=== PATIENT | female | born 1940 | race Caucasian/White ===

== ENCOUNTER 2024-11-13 01:25 | Inpatient (IN) | payer OTHER, SELFPAY ==
[2024-11-12 19:42] VITALS: BP 172/99
--- NOTE | 2024-11-12 23:26 | ED.GENMED ---
History of Present Illness
<Micah Garcia PA-C - Last Filed: 11/13/24 00:32>
General
Chief Complaint: Fall
Time Seen by Provider: 11/12/24 23:09
History of Present Illness
History of Present Illness:
84-year-old female presents to the emergency department for evaluation of left hip and groin pain as well as left chest wall pain after a mechanical fall. She slipped on a rug in her home and was on the ground for 2 to 3 hours before reaching her
phone. She is unable to walk. Does not take any anticoagulants. Denies head strike.
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
post bone grafting
Review of Systems
<Micah Garcia PA-C - Last Filed: 11/13/24 00:32>
Review of Systems
Allergies reviewed?: Yes
All Other Systems: ROS reviewed and negative except as documented in HPI and ROS
Phy Exam
<Micah Garcia PA-C - Last Filed: 11/13/24 00:32>
Physical Exam
Physical Exam:
GEN: Well appearing, NAD, WDWN
HEENT: Oral mucosa moist, no scleral icterus
Cardiac: Regular rate
Lung: No respiratory distress, no tachypnea
MSK: Shortening and external rotation of the left lower extremity, no obvious swelling or deformity to the left knee. No midline cervical, thoracic, or lumbar spinal tenderness.
Skin: Good color, no pallor or jaundice, no rashes
Neuro: AO x3, moves all extremities freely
Psych: Calm, cooperative
Course
<Micah Garcia PA-C - Last Filed: 11/13/24 00:32>
Orders/Labs/Results
Orders:
Orders
11/12/24 19:51
CR Hip - LT w/wo Pel 2-3 Vw* Urgent
Comment:
Reason For Exam: fall
Include a pelvis x-ray?: Yes
11/12/24 20:33
Femur, Left 2 View [CR Femur - Left Min 2 Vw] Urgent
Comment:
Reason For Exam: FALL
11/12/24 23:23
Acetaminophen [Tylenol] 650 mg PO NOW STA
CR Chest Portable - 1 View Urgent
Comment:
Reason For Exam: chest/back injury/fall
Reason Study Needs to be Portable: Other
11/12/24 23:55
Complete Blood Count/With Diff Urgent
11/13/24 00:30
Comprehensive Metabolic Panel Urgent
Comment: REDRAW
Creatine Phosphokinase Urgent
Abnormal Lab Results
11/12/24
23:55
WBC 22.8 H 10^3/uL
(4.8-10.8)
Hct 36.8 L %
(37.0-47.0)
RDW 15.7 H %
(11.5-14.5)
Plt Count 424 H 10^3/uL
(130-400)
MPV 11.2 H fL
(7.4-10.4)
11/12/24 23:55
Vital Signs
Initial and Last Documented VS:
Initial Vital Signs
Temp Pulse Resp BP Pulse Ox
98.2 F 73 16 172/99 98
11/12/24 19:42 11/12/24 19:42 11/12/24 19:42 11/12/24 19:42 11/12/24 19:42
Last Documented Vital Signs
Temp Pulse Resp BP Pulse Ox
98.2 F 73 16 172/99 98
11/12/24 19:42 11/12/24 19:42 11/12/24 19:42 11/12/24 19:42 11/12/24 23:27
<Michael Michael MD - Last Filed: 11/13/24 00:35>
Orders/Labs/Results
Orders:
Orders
11/12/24 19:51
CR Hip - LT w/wo Pel 2-3 Vw* Urgent
Comment:
Reason For Exam: fall
Include a pelvis x-ray?: Yes
11/12/24 20:33
Femur, Left 2 View [CR Femur - Left Min 2 Vw] Urgent
Comment:
Reason For Exam: FALL
11/12/24 23:23
Acetaminophen [Tylenol] 650 mg PO NOW STA
CR Chest Portable - 1 View Urgent
Comment:
Reason For Exam: chest/back injury/fall
Reason Study Needs to be Portable: Other
11/12/24 23:55
Complete Blood Count/With Diff Urgent
11/13/24 00:30
Comprehensive Metabolic Panel Urgent
Comment: REDRAW
Creatine Phosphokinase Urgent
Abnormal Lab Results
11/12/24
23:55
WBC 22.8 H 10^3/uL
(4.8-10.8)
Hct 36.8 L %
(37.0-47.0)
RDW 15.7 H %
(11.5-14.5)
Plt Count 424 H 10^3/uL
(130-400)
MPV 11.2 H fL
(7.4-10.4)
11/12/24 23:55
Vital Signs
Initial and Last Documented VS:
Initial Vital Signs
Temp Pulse Resp BP Pulse Ox
98.2 F 73 16 172/99 98
11/12/24 19:42 11/12/24 19:42 11/12/24 19:42 11/12/24 19:42 11/12/24 19:42
Last Documented Vital Signs
Temp Pulse Resp BP Pulse Ox
98.2 F 73 16 172/99 98
11/12/24 19:42 11/12/24 19:42 11/12/24 19:42 11/12/24 19:42 11/12/24 23:27
<Micah Garcia PA-C - Last Filed: 11/13/24 00:32>
MDM/Problems Addressed
MDM/Problems Addressed:
Patient unfortunately sustained a left intertrochanteric fracture of the hip will require admission to the medical service for operative clearance and orthopedic consultation for operative intervention. Of note the abnormal findings on distal femur
x-rays are most likely patient support representative of prior fracture with subsequent bone grafting as opposed to malignant disease
<Micah Garcia PA-C - Last Filed: 11/13/24 00:32>
*Pulse Oximetry
SaO2: 98
Oxygen Mode of Delivery: Room air
Patient hypoxic: no
*Critical Care Note
Total Time (30-74mins, 75-104mins- exclusive of procedures): Not Applicable
ED Attending Note
<Micah Garcia PA-C - Last Filed: 11/13/24 00:32>
-
Portions of this chart may have been created with voice recognition software.� Occasional wrong word or��sound alike� substitutions may have occurred due to the inherent limitations of voice recognition software.
<Michael Michael MD - Last Filed: 11/13/24 00:35>
ED Attending Note
Patient seen and examined by attending physician: Yes
I performed the substantive portion of visit, reviewed & personally made and approve the management plan that is documented in note by myself or ELLEN.: Yes
ED Attending Note:
84-year-old female fell in her kitchen. No syncope. Complaining of severe left hip pain. Also some left lateral rib pain. No other acute complaints
On exam patient is nontoxic. Normocephalic atraumatic. Neck nontender. Some mild left lateral chest wall tenderness. Breath sounds are equal. Abdomen nontender. Pelvis is stable. Shortening and rotation of the left lower extremity with
significant left trochanteric tenderness. Good distal pulses and color.
X-ray shows right intertrochanteric hip fracture. Chest x-ray unremarkable for acute fracture or pneumothorax. Admission for definitive orthopedic management. Leukocytosis is likely reactive
Discharge Plan
Departure
Patient Disposition: Admit
Date of Disposition: 11/13/24
Time of Disposition: 00:31
Admit to: Med/Surg
Presentation/result/management discussed w/ accepting MD/DO: Hospitalist
Discharge Problem:
Closed intertrochanteric fracture of left femur
Interventions
Interventions:
*Risk Screen - Suicide Last Done: 11/12/24 19:42
*General Assessment Last Done: 11/12/24 23:50
*Neglect/Abuse Screening Last Done: 11/12/24 23:50
*ED COVID-19 Vaccine History Last Done: 11/12/24 23:50
ED-Musculoskeletal Assessment Last Done: 11/12/24 23:53
ED- Neurological Assessment Last Done: 11/12/24 23:53
ED-Skin Assessment Last Done: 11/12/24 23:53
Discharge Date and Time
Print Language: [place]
[2024-11-12] MEDS: TYLENOL 650 MG PO (23:33)
[2024-11-12 23:44] VITALS: BMI 21.7
[2024-11-12 23:48] VITALS: BP 165/73
[2024-11-13] VITALS (12 sets, daily range): BP systolic 125–196; BP diastolic 56–101; BMI 21.0
[2024-11-13 00:08] LABS: Hematocrit 36.8 % (37.0-47.0); Hemoglobin 12.3 g/dL (12.0-16.0); Mean Corp Hgb Conc. 33.4 g/dL (33.0-37.0); Mean Corpuscular Volume 86.4 fL (81.0-99.0); Platelet Count 424 10^3/uL (130-400); Red Cell Dist. Width 15.7 % (11.5-14.5)
--- NOTE | 2024-11-13 00:42 | HPS.HSE ---
Family Physician
-
Family Physician:
Chief Complaint
-
Fall
History of Present Illness
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
bone grafting, pituitary dwarfism presenting to the emergency ferment after mechanical fall.
Patient had a trip and fall at home. There was no loss of consciousness. She slipped on a rug in her home and fell to the ground. She was on the ground for about 2 to 3 hours before reaching her phone. She is now unable to walk. She denies any
head strike. She is not taking any anticoagulation.
In the emergency department she was afebrile, blood pressure was 172/99 with a pulse rate of 73 and she was satting 98% on room air.
She had a white count of 22.8 otherwise CBC was unremarkable. Electrolytes BUN and creatinine are still pending.
Hip x-ray shows left internal trochanteric femur fracture. Chest x-ray is clear.
Medical History
Past Medical History
Past Medical History: Reports Cancer (intraductal papillary mucinous neoplasm), Hypothyroidism and NIDDM
Past Surgical History: Reports Orthopedic (Femur fracture status post bone grafting) and Other (Distal pancreatectomy and splenectomy)
Social History
Tobacco: Non-smoker
Alcohol: None
Drug: None
Family History
Family History: Not pertinent
Allergies / Home Medications
Allergies reflects when Allergies were last updated in [facility].
Home Medications with original date entered in [facility]
Allergy/Medication List:
Allergies
Allergy/AdvReac Type Severity Reaction Status Date / Time
Penicillins Allergy Anaphylaxis Verified 11/12/24 19:42
vancomycin Allergy Anaphylaxis Verified 11/12/24 19:42
Metformin 1000 mg tablet, 1000 mg p.o. twice daily
Metoprolol 25 mg tablet, 25 mg p.o. daily
Aspirin 81 mg tablets, he tomograms p.o. at bedtime
If medication reconciliation has not been performed, why?: Other (Incomplete medication list as patient is unable to recall all her medications. She remains on levothyroxine, statin as well.)
Review of Systems
-
Constitutional: Reports No Symptoms
EENT: Reports No Symptoms
Respiratory: Reports No Symptoms
Cardiac: Reports No Symptoms
Abdomen/GI: Reports No Symptoms
: Reports No Symptoms
Musculoskeletal: Reports Joint Pain
Skin: Reports No Symptoms
Neurological: Reports No Symptoms
Endocrine: Reports No Symptoms
Hematologic/Lymphatic: Reports No Symptoms
Psych: Reports No Symptoms
Physical Exam
Vital Signs
Vital Signs
Temp Pulse Resp BP Pulse Ox
98.2 F 73 16 172/99 98
11/12/24 19:42 11/12/24 19:42 11/12/24 19:42 11/12/24 19:42 11/12/24 23:27
Physical Exam
General: Well Developed, Well Nourished and No Apparent Distress
HEENT: NormoCephalic, Moist mucous membranes and Atraumatic
Respiratory: Clear
Cardiac: S1/S2 and Regular Rhythm; No Murmur or Rub
GI: Soft, Non Tender, Non Distended and Normal Bowel Sounds; No Organomegaly
Rectal: Deferred by Provider
Musculoskeletal: No Clubbing, No Cyanosis and No Edema
Skin: No Rash
Neuro: AO x 3 and Nonfocal/grossly intact
Psych: Calm
Laboratory Results
-
11/12/24 23:55
Laboratory Results
Total Bilirubin Cancelled 11/12/24 23:55
AST Cancelled 11/12/24 23:55
ALT Cancelled 11/12/24 23:55
Alkaline Phosphatase Cancelled 11/12/24 23:55
Data Reviewed
-
Diagnostic Radiology: Image Personally Visualized and interpreted and Report Reviewed by me
Lab Data: Labs Reviewed by me
Old Records: Reviewed
Impression/Plan
-
IMPRESSION:
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
fall and a left intertrochanteric hip fracture.
PLAN:
Intertrochanteric femoral fracture -no thinners, surgical candidate
-Admit to MedSurg
-N.p.o. for now
-Pain control, antiemetics, gentle hydration
-Monitor ins and outs, bladder scan and treat for urinary retention
-DVT prophylaxis with SCDs for now, can start medical prophylaxis after surgical procedure
-Holding antihypertensives
-PT consult
-Ortho aware and plan 4 OR in a.m.
DMII
- sliding scale insulin for now, patient on metformin 1000mg bid
HTN
- on metoprolol, cannot recall dose, check with pharmacy in am
Hypothyroid
- on levothyroxine, cannot recall dose, check with pharmacy in am
DVT PPX - SCDs for now
CODE STATUS� full code
[2024-11-13 01:33] LABS: Absolute Neutrophils -Man Diff 20.7 10^3/uL (1.4-6.5)
[2024-11-13 01:34] LABS: Anisocytosis 2+; Burr Cells 2+; Normal RBC Morphology No; Platelets Checked Yes; Total Cells Counted 100
[2024-11-13 02:25] LABS: Glucose - Point of Care 186 mg/dl (70-99)
[2024-11-13 02:32] LABS: ALT (SGPT) 50 U/L (0-35); AST (SGOT) 74 U/L (14-36); Albumin 4.0 g/dl (3.5-5.0); Alkaline Phosphatase 126 U/L (38-126); Blood Urea Nitrogen 25 mg/dl (7-17); Calcium 9.4 mg/dl (8.4-10.2); Carbon Dioxide 19 mmol/L (22-30); Chloride 105 mmol/L (98-107); Estimated Creatinine Clearance 29 ml/min; Glucose 182 mg/dl (70-99); Potassium 5.1 mmol/L (3.5-5.1); Sodium 134 mmol/L (135-145); Total Protein 6.9 g/dl (6.3-8.2); eGFR > 60.00
[2024-11-13] MEDS: TYLENOL 650 MG PO ×5 (03:24→23:34)
[2024-11-13] MEDS: LR 500 IV (03:35)
[2024-11-13 05:44] LABS: Glucose - Point of Care 186 mg/dl (70-99)
[2024-11-13] MEDS: NOVOLOG FLEXPEN-LOW RESISTANCE SC ×3 (05:54→22:10)
--- NOTE | 2024-11-13 08:24 | PTCARENOTE ---
Pt arrived to unit from ED at 0200-patient pulled over to bed from stretcher. Pt reports left sided hip pain post pullover, this RN informed patient of prn analgesia options-pt declined analgesia and preferred waiting for scheduled Tylenol-See APR.
IVF started, pt NPO. Bed in lowest position and locked, pt states no further needs at this time.
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
[2024-11-13 11:41] LABS: Glucose - Point of Care 158 mg/dl (70-99)
--- NOTE | 2024-11-13 11:49 | PTCARENOTE ---
Patient BS 158. Pt NPO for OR procedure. Pt refused insulin as ordered.
--- NOTE | 2024-11-13 12:34 | W.PN.HOSP.TC ---
Today's Communication/Plan
-
pending med recc
Assessment / Plan
Assessment / Plan
HPI: 84-year-old female with past medical history significant for hypothyroidism, history of papillary mucinosis neoplasm status post distal pancreatectomy and splenectomy, fsl-lnvmowk-wsfrnxebz diabetes, had a prior femoral fracture requiring bone
grafting, pituitary dwarfism; p/w mechanical fall resulting in left intertrochanteric hip fracture.
She slipped on a rug in her home and fell to the ground. There was no loss of consciousness. She was on the ground for about 2 to 3 hours before reaching her phone. She is not on any anticoagulation.
A/P:
# Mechanical fall with left proximal femur intertrochanteric femoral fracture with mild displacement.
Ortho on board, plan for OR 11/13
Pain control, antiemetics, gentle hydration
DVT prophylaxis with SCDs for now, can start medical prophylaxis after surgical procedure
PT consult
# Leucocytosis, possible reactive
check UA reflex Cx
urinary retention documented, check bladder scan
Monitor WBC
consider empiric Abx for possible UTI
# Transaminitis, possible reactive
follow LFT
# DM II
sliding scale insulin for now, patient on metformin 1000mg bid
# HTN
on metoprolol, cannot recall dose
need med recc
# Hypothyroidism
on levothyroxine, cannot recall dose
need med recc
# Mild hyponatremia
# pituitary dwarfism
DVT PPX - SCDs for now
CODE STATUS� full code
[facility] RN, requested med recc
total time 51 min
Anticipated Discharge: > 48 hours
Subjective/Interval History
-
Date of Service: November 13, 2024
Objective Data
-
Labs:
Laboratory Results
11/13/24
01:31
Sodium 134 L
Potassium 5.1
Chloride 105
Carbon Dioxide 19 L
BUN 25 H
Creatinine 0.5 L
Glucose 182 H
Calcium 9.4
Total Bilirubin 0.7
AST 74 H
ALT 50 H
Alkaline Phosphatase 126
Vital Signs:
Vital Signs
Temp Pulse Resp BP Pulse Ox
36.8 C 75 18 166/81 97
11/13/24 07:53 11/13/24 07:53 11/13/24 07:53 11/13/24 07:53 11/13/24 12:09
I&O
11/12/24 11/13/24 11/14/24
06:59 06:59 06:59
Intake Total 0 / 0
Balance 0 / 0
Review of Systems
-
History Source: Patient
All other systems: Reviewed and negative
Physical Exam
-
General: Well Nourished, No Apparent Distress, Comfortable, Conversant and Other (short stature); Negative Respiratory Distress
HEENT: Normocephalic, Atraumatic, Nose Appears Normal and Ears Appear Normal; Negative Oxygen
Respiratory: Clear to Auscultation and Non Labored Respirations; Negative Accessory Resp Muscle Use
Cardiac: Regular Rhythm and S1/S2
GI: Soft, Nontender, Nondistended and Normal Bowel Sounds
Skin: Warm and Dry
Neuro: Awake, Alert and Oriented
Psych: Calm and Intact Judgement/Insight
Data Reviewed
-
Diagnostic Radiology: Report Reviewed by me
Labs: Labs Reviewed by me
[2024-11-13] MEDS: LR IV ×3 (13:19→22:44)
[2024-11-13] MEDS: TYLENOL PO (13:19)
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
[2024-11-13 15:54] LABS: Glucose - Point of Care 166 mg/dl (70-99)
--- NOTE | 2024-11-13 17:05 | SUR.PHASEI ---
Took pt to room and during handoff in room, dressing on left leg leaked around it onto pt.'s gown. This RN placed ABD over mepilex dressing and notified Thi [facility] RN, that would reach out to Dr. Cason. This RN called into OR room and notified
Dr. Cason who will look at dressing. Called 2 south and passed message on that Dr. Cason will look at dressing.
[2024-11-13 17:31] LABS: Glucose - Point of Care 186 mg/dl (70-99)
--- NOTE | 2024-11-13 17:46 | PTCARENOTE ---
1700 Pt arrived in bed from PACU. VSS. 100% ON 2L. Middle primeseal dressing saturated and leaking on to sheets. PACU nurse reinforced and notified Dr. Cason. Oriented to room and call bales. bed locked and in lowest position.
[2024-11-13] MEDS: NOVOLOG FLEXPEN-LOW RESISTANCE 1 UNITS SC (18:23)
[2024-11-13] MEDS: COLACE PO (20:40)
[2024-11-13] MEDS: SENOKOT PO (20:40)
--- NOTE | 2024-11-13 20:42 | W.IMMPOSTOP ---
Surgical Immed Post Op Note
-
Primary Surgeon: Everett Cason MD
Assisting Surgeon:
Pre-op Diagnosis: left intertrochanteric hip fracture
Post-op Diagnosis: left intertrochanteric hip fracture
Procedure Performed: intramedullary fixation left hip fracture
Anesthesia Type: general
Specimen / Cultures: none
Estimated Blood Loss: 25mL
Complications: none apparent
Operative Findings: left intertrochanteric hip fracture
Implants: Deepak Gamma 4 [id number] nail; 10.5x80mm lag screw; 5x30mm locking screw
Operative dictation #: [id number]
[2024-11-13 21:36] LABS: Glucose - Point of Care 407 mg/dl (70-99)
[2024-11-13 21:36] LABS: Glucose - Point of Care 404 mg/dl (70-99)
[2024-11-13 21:36] LABS: Glucose - Point of Care 442 mg/dl (70-99)
[2024-11-13 21:42] LABS: Glucose - Point of Care 417 mg/dl (70-99)
[2024-11-13 22:15] LABS: Glucose 388 mg/dl (70-99)
[2024-11-13] MEDS: NOVOLOG FLEXPEN-LOW RESISTANCE 5 UNITS SC (22:31)
[2024-11-13 22:43] LABS: Urine Character Clear (Clear)
--- NOTE | 2024-11-14 02:47 | DOWNTIME ---
There was a [employer] Client Scraper Hand Downtime on 11/14/2024 from 0100 to 11/14/2024 at 0215. Downtime documentation of patient's care, including medication administrations, has been reconciled in the electronic record per guidelines. Refer to the
patient's paper chart under the miscellaneous tab to see printed paper medication records and downtime forms.
[2024-11-14] MEDS: TYLENOL 650 MG PO ×5 (04:28→20:55)
[2024-11-14] MEDS: SYNTHROID 50 MCG PO (05:32)
--- NOTE | 2024-11-14 07:13 | W.PN.ORTHO ---
Today's Communication / Plan
-
84 yo F POD1 left hip cephalomedullary nail for intertrochanteric femur fracture under the direction of Dr. Cason
--WBAT to LLE with assistive device. We appreciate the assistance of PT/OT.
--Recommend ASA 325 mg daily x4 weeks for DVT ppx.
--Pain control prn. Ice and elevation for pain and edema control.
--Hgb pending this AM. Continue to monitor.
--Maintain surgical dressing until 7-10 days post-op. Please replace ABD with Primaseal dressing. Staple removal at 2 weeks post-op.
--Case management consult for dc planning.
--Orthopedics will continue to follow along.
Assessment
.
Distal Motor Intact: Yes
Dressing:
Clean, dry and intact.
Plan
.
Surgery / Date: L hip Maciel GARBER, 11/13
DVT Prophylaxis: Aspirin
Activity:
Out of bed.
PT/OT
Subjective
.
.:
Ms. Mario Noland is POD1 following her left hip cephalomedullary nail performed by Dr. Cason. She is resting comfortably in bed this morning. She denies any pain in the hip at rest. She has no questions or concerns at this time.
Vital Signs and Labs
.
Vital Signs and Labs:
Temp Pulse Resp BP Pulse Ox
97.7 F 79 16 125/69 100
11/13/24 23:00 11/13/24 23:00 11/13/24 23:00 11/13/24 23:00 11/13/24 23:00
Physical Exam
-
Directed exam of the left lower extremity reveals Primaseal dressings proximally and distally CDI. There is an ADB over the middle incision. Mild tenderness about the hip. Thigh soft and compressible. Calf soft and nontender. Patient able to wiggle
toes, plantar and dorsiflex ankle. NVID.
[2024-11-14 07:39] LABS: Glucose - Point of Care 155 mg/dl (70-99)
[2024-11-14 07:40] VITALS: BP 158/88
[2024-11-14 08:10] LABS: APTT 30.8 Sec (23.4-35.0); INR 1.02; PT 13.9 Sec (11.4-14.6)
[2024-11-14 08:12] LABS: Hematocrit 27.5 % (37.0-47.0); Hemoglobin 9.2 g/dL (12.0-16.0); Mean Corp Hgb Conc. 33.5 g/dL (33.0-37.0); Mean Corpuscular Volume 88.1 fL (81.0-99.0); Nucleated Red Blood Cells % 0 %; Platelet Count 266 10^3/uL (130-400); Red Cell Dist. Width 15.7 % (11.5-14.5)
[2024-11-14] MEDS: TOPROL XL 25 MG PO (09:02)
[2024-11-14] MEDS: ASPIRIN 325 MG PO (09:02)
[2024-11-14] MEDS: SENOKOT 17.2 MG PO ×2 (09:03→20:33)
[2024-11-14] MEDS: COLACE 100 MG PO ×2 (09:03→20:33)
[2024-11-14] MEDS: NOVOLOG FLEXPEN-LOW RESISTANCE 1 UNITS SC ×2 (09:04→18:22)
--- NOTE | 2024-11-14 09:47 | CM ---
Addendum entered by Zeus Garner 11/14/24 14:34:
CM met with pt again and pt provided a list with preferred SNFs. Following SNFs preferred: [facility], [facility]. [facility], [facility], [facility].
CM tried to send a referral via [employer] and it seems system is down. Will try again later.
Original Note:
CM following re: discharge planning.
Reviewed pt's chart, met with pt.
Pt is am 84 year old female, admitted with primary dx of Intertrochanteric femoral fracture. POD1 s/p left hip cephalomedullary nail for intertrochanteric femur fracture.
Pt reports she lives alone in an in-law suite attached to daughter's house. 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 Pt reports she uses a cane when goes outside. Pt stated she is aware she will need
to go to a SNF. A list of SNFs provided. Pt requested rating of SNFs. A list of SNFs with rating printed out from Medicare.gov web site and given to the pt for a review. Pt stated she will review the list, will talk to her daughter and she will come
back to me tomorrow morning. Pt is informed that she might be ready for discharge today or tomorrow and pt stated she will come back to me with her decision of preferred SNFs this afternoon.
PT and OT evaluations pending.
PCP: Rosas Velasquez
Pharmacy: [facility]
D/C plan: preferred SNF.
CM will follow to assist pt with discharge to a preferred SNF.
[2024-11-14 10:06] LABS: ALT (SGPT) 41 U/L (0-35); AST (SGOT) 59 U/L (14-36); Albumin 3.6 g/dl (3.5-5.0); Alkaline Phosphatase 104 U/L (38-126); Blood Urea Nitrogen 21 mg/dl (7-17); Calcium 9.2 mg/dl (8.4-10.2); Carbon Dioxide 23 mmol/L (22-30); Chloride 106 mmol/L (98-107); Estimated Creatinine Clearance 29 ml/min; Glucose 147 mg/dl (70-99); Magnesium 1.8 mg/dl (1.6-2.3); Potassium 4.2 mmol/L (3.5-5.1); Sodium 137 mmol/L (135-145); Total Protein 6.4 g/dl (6.3-8.2); eGFR > 60.00
--- NOTE | 2024-11-14 10:08 | W.PN.HOSP.TC ---
Addendum entered and electronically signed by Aubrie Mckeon MD 11/14/24 13:18:
# Traumatic fracture from fall
Original Note:
Today's Communication/Plan
-
see A/P
Assessment / Plan
Assessment / Plan
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
grafting, pituitary dwarfism; p/w mechanical fall resulting in left intertrochanteric hip fracture.
She slipped on a rug in her home and fell to the ground. There was no loss of consciousness. She was on the ground for about 2 to 3 hours before reaching her phone. She is not on any anticoagulation.
A/P:
# Mechanical fall with left proximal femur intertrochanteric femoral fracture with mild displacement.
s/p OR 11/13 with Left hip cephalomedullary nail for intertrochanteric femur fracture by Dr. Cason
WBAT LLE with assistive device.
PT/OT eval
ASA 325 mg daily x4 weeks for DVT ppx.
Cont pain control prn.
Cont to monitor Hgb
per ortho, maintain surgical dressing until 7-10 days post-op. Staple removal at 2 weeks post-op.
# Localized L sided chest pain with deep inspiration and movement
Will check dedicated L rib XR
Lidocaine patch for local pain control
# Acute post op blood loss anemia
Hgb today at 9.2, cont to monitor
# Leucocytosis, reactive and resolved
UA noted, not indicative of UTI
# Mild Transaminitis, possible reactive
follow LFT
# DM II
sliding scale insulin for now, patient on metformin 1000mg bid
# HTN
Cont COMMUNITY NURSE Toprol with holding parameter
# Hypothyroidism
cont COMMUNITY NURSE levothyroxine 50 mcg daily
# Mild hyponatremia, resolved
# pituitary dwarfism
DVT PPX - ASA post op
CODE STATUS� full code
DW radiologist
total time 51 min
Anticipated Discharge: 24 - 48 hours
Subjective/Interval History
-
Date of Service: November 14, 2024
Objective Data
-
Labs:
Laboratory Results
11/13/24 11/14/24
21:52 07:30
WBC 10.1
Hgb 9.2 L D
Hct 27.5 L
Plt Count 266 D
PT 13.9
INR 1.02
APTT 30.8
Sodium 137
Potassium 4.2
Chloride 106
Carbon Dioxide 23
BUN 21 H
Creatinine 0.6
Glucose 388 H 147 H
Calcium 9.2
Total Bilirubin 0.7
AST 59 H
ALT 41 H
Alkaline Phosphatase 104
Vital Signs:
Vital Signs
Temp Pulse Resp BP Pulse Ox
36.8 C 84 18 130/68 99
11/14/24 07:40 11/14/24 09:02 11/14/24 07:40 11/14/24 09:02 11/14/24 07:40
I&O
11/13/24 11/14/24 11/15/24
06:59 06:59 06:59
Intake Total 0 / 0 170 / 170
Balance 0 / 0 170 / 170
Review of Systems
-
History Source: Patient
Respiratory: Reports Other (L sided localized chest pain with deep breathing and movement)
Physical Exam
-
General: No Apparent Distress, Comfortable, Conversant and Other (short stature); Negative Respiratory Distress
HEENT: Normocephalic, Atraumatic, Nose Appears Normal and Ears Appear Normal; Negative Oxygen
Respiratory: Clear to Auscultation and Non Labored Respirations; Negative Accessory Resp Muscle Use
Cardiac: Regular Rhythm and S1/S2
GI: Soft, Nontender, Nondistended and Normal Bowel Sounds
Skin: Warm and Dry
Neuro: Awake, Alert and Oriented
Psych: Calm and Intact Judgement/Insight
Data Reviewed
-
Diagnostic Radiology: Report Reviewed by me
Labs: Labs Reviewed by me
[2024-11-14 11:15] VITALS: BP 126/62; PULSE 85; O2SAT 94
[2024-11-14 11:24] VITALS: BP 126/62; PULSE 84; O2SAT 94
[2024-11-14] MEDS: LR IV (11:38)
[2024-11-14] MEDS: LIDOCAINE 4% PATCH 1 PATCH TOPICAL (11:38)
[2024-11-14 13:20] LABS: Glucose - Point of Care 419 mg/dl (70-99)
[2024-11-14 13:20] LABS: Glucose - Point of Care 436 mg/dl (70-99)
[2024-11-14 14:19] LABS: Glucose 398 mg/dl (70-99)
[2024-11-14] MEDS: NOVOLOG FLEXPEN-LOW RESISTANCE 5 UNITS SC (14:28)
[2024-11-14 15:05] VITALS: BP 102/63
[2024-11-14 18:14] LABS: Glucose - Point of Care 177 mg/dl (70-99)
[2024-11-14] MEDS: REMOVE LIDOCAINE PATCH 1 PATCH REMOVE (20:32)
[2024-11-14 21:55] LABS: Glucose - Point of Care 239 mg/dl (70-99)
[2024-11-14 23:09] VITALS: BP 102/56
[2024-11-15] MEDS: TYLENOL PO (00:55)
[2024-11-15] MEDS: TYLENOL 650 MG PO ×3 (03:38→12:54)
[2024-11-15] MEDS: SYNTHROID 50 MCG PO (05:52)
--- NOTE | 2024-11-15 06:55 | W.PN.ORTHO ---
Today's Communication / Plan
-
84 yo F POD2 left hip cephalomedullary nail for intertrochanteric femur fracture under the direction of Dr. Cason
--WBAT to LLE with assistive device. We appreciate the assistance of PT/OT.
--ASA 325 mg daily x4 weeks for DVT ppx.
--Pain control prn. Ice and elevation for pain and edema control.
--Hgb pending this AM. Continue to monitor.
--Maintain surgical dressing until 7-10 days post-op. Please replace ABD with Primaseal dressing. Staple removal at 2 weeks post-op.
--Case management consult for dc planning.
--Orthopedics to sign off.
Assessment
.
Distal Motor Intact: Yes
Dressing:
Clean, dry and intact.
Plan
.
Surgery / Date: L hip Maciel GARBER, 11/13
DVT Prophylaxis: Aspirin
Activity:
Out of bed.
PT/OT
Discharge Plan: SNF
Subjective
.
.:
Patient relates that she is having pain left hip/leg but is only taking Tylenol. She does have stronger pain medication ordered so I suggested she discuss with the nurse but she said she does not want to take anything stronger.
Vital Signs and Labs
.
Vital Signs and Labs:
Temp Pulse Resp BP Pulse Ox
98.4 F 76 17 102/56 95
11/14/24 23:09 11/14/24 23:09 11/14/24 23:09 11/14/24 23:09 11/14/24 23:09
PT 13.9 Sec (11.4-14.6) 11/14/24 07:30
INR 1.02 11/14/24 07:30
[2024-11-15 07:00] VITALS: BP 142/68
[2024-11-15 07:18] LABS: Glucose - Point of Care 192 mg/dl (70-99)
[2024-11-15] MEDS: NOVOLOG FLEXPEN-LOW RESISTANCE SC (07:45)
--- NOTE | 2024-11-15 08:47 | CM ---
Addendum entered by Zeus Garner 11/15/24 13:02:
[facility] nursing report: [phone]
Discharge instructions fax: [phone]
Addendum entered by Zeus Garner 11/15/24 12:38:
[facility] offered a bed. Both pt and her daughter are aware, expressed their agreement with [facility].
Discharge order noted. Both pt and her daughter are aware, expressed their agreement. IMM reviewed, placed on chart, pt has a copy.
CM initiated an auth from [employer] for SNF level of care at [facility], spoke to case supervisor Andrzej and based in pt's clinical, pt is approved for 5 initial days from today 11/15/24 till 11/19/24 with LCD and NRD 11/19/24. Auth: [id number]. For review
[id number] option 5.
Auth information forwarded to [facility] clinical training coordinator and she confirmed that pt is accepted for admission today.
arranged ambulance transport C with [facility], package pick up time 13:30. [facility] completed and left with . Ambulance auth: [id number].
Both pt, her daughter and [facility] clinical training coordinator are aware of discharge time.
D/C plan: [facility] today.
Original Note:
CM following re: discharge planning.
Reviewed pt's chart, met with pt.
Pt is POD2 s/p left hip cephalomedullary nail for intertrochanteric femur fracture. Continue supportive care.
Pt lives alone in an in-law suite attached to daughter's house. 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 Pt reports she uses a cane when goes outside.
PT and OT evaluations noted - SNF level of care recommended. CM made a referral today to preferred SNFs: [facility], [facility]. [facility] SNF, [facility], [facility] SNF.
Awaiting for determination.
D/C plan: preferred SNF.
CM will follow to assist pt with discharge to a preferred SNF.
--- NOTE | 2024-11-15 08:59 | W.PN.HOSP.TC ---
Today's Communication/Plan
-
see A/P
Assessment / Plan
Assessment / Plan
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
grafting, pituitary dwarfism; p/w mechanical fall resulting in left intertrochanteric hip fracture.
She slipped on a rug in her home and fell to the ground. There was no loss of consciousness. She was on the ground for about 2 to 3 hours before reaching her phone. She is not on any anticoagulation.
A/P:
# Mechanical fall with left proximal femur intertrochanteric femoral fracture with mild displacement.
s/p OR 11/13 with Left hip cephalomedullary nail for intertrochanteric femur fracture by Dr. Cason
WBAT LLE with assistive device.
PT/OT recc SNF
ASA 325 mg daily x4 weeks for DVT ppx.
Cont pain control prn.
Cont to monitor Hgb
per ortho, maintain surgical dressing until 7-10 days post-op. Staple removal at 2 weeks post-op.
# Localized L sided chest pain likely musculoskeletal strain
dedicated L rib XR ruled out rib fractures.
Lidocaine patch for local pain control
# Acute post op blood loss anemia
Hgb at 9.2 post op, cont to monitor, pending lab today
# Leucocytosis, reactive and resolved
UA noted, not indicative of UTI
# Mild Transaminitis, possible reactive
follow LFT
# DM II
cover with sliding scale insulin for now, patient on metformin 1000mg bid
Follow A1C
Carb control diet
Pt states that she has an employment legal assistant outpt for her DM
# HTN
Cont CARDIAC REHABILITATION SPECIALIST Toprol with holding parameter
# Hypothyroidism
cont CARDIAC REHABILITATION SPECIALIST levothyroxine 50 mcg daily
# Mild hyponatremia, resolved
# pituitary dwarfism
DVT PPX - ASA post op
CODE STATUS� full code
DW RN
Anticipated Discharge: Within 24 hours
Subjective/Interval History
-
Date of Service: November 15, 2024
Objective Data
-
Labs:
Laboratory Results
11/15/24
08:48
WBC Pending
Hgb Pending
Hct Pending
Plt Count Pending
Sodium Pending
Potassium Pending
Chloride Pending
Carbon Dioxide Pending
BUN Pending
Creatinine Pending
Glucose Pending
Calcium Pending
Total Bilirubin Pending
AST Pending
ALT Pending
Alkaline Phosphatase Pending
Vital Signs:
Vital Signs
Temp Pulse Resp BP Pulse Ox
36.9 C 76 16 142/68 96
11/15/24 07:00 11/15/24 07:00 11/15/24 07:00 11/15/24 07:00 11/15/24 07:00
I&O
11/14/24 11/15/24 11/16/24
06:59 06:59 06:59
Intake Total 170 / 170 1040 / 1040
Balance 170 / 170 1040 / 1040
Review of Systems
-
History Source: Patient
Respiratory: Reports Other (L sided localized chest pain)
Physical Exam
-
General: No Apparent Distress, Comfortable, Conversant (full sentences ) and Other (short stature); Negative Respiratory Distress
HEENT: Normocephalic, Atraumatic, Nose Appears Normal and Ears Appear Normal; Negative Oxygen
Respiratory: Clear to Auscultation and Non Labored Respirations; Negative Accessory Resp Muscle Use
Cardiac: Regular Rhythm and S1/S2
GI: Soft, Nontender, Nondistended and Normal Bowel Sounds
Skin: Warm and Dry
Neuro: Awake, Alert and Oriented
Psych: Calm and Intact Judgement/Insight
Data Reviewed
-
Diagnostic Radiology: Report Reviewed by me and Discussed with Patient
Labs: Labs Reviewed by me
[2024-11-15 09:41] LABS: Hematocrit 26.0 % (37.0-47.0); Hemoglobin 8.5 g/dL (12.0-16.0); Mean Corp Hgb Conc. 32.7 g/dL (33.0-37.0); Mean Corpuscular Volume 89.3 fL (81.0-99.0); Nucleated Red Blood Cells % 0 %; Platelet Count 340 10^3/uL (130-400); Red Cell Dist. Width 15.9 % (11.5-14.5)
[2024-11-15] MEDS: ASPIRIN 325 MG PO (09:42)
[2024-11-15] MEDS: TOPROL XL 25 MG PO (09:42)
[2024-11-15] MEDS: SENOKOT 17.2 MG PO (09:42)
[2024-11-15] MEDS: COLACE 100 MG PO (09:42)
[2024-11-15] MEDS: LIDOCAINE 4% PATCH 1 PATCH TOPICAL (09:43)
[2024-11-15 10:35] LABS: ALT (SGPT) 94 U/L (0-35); AST (SGOT) 159 U/L (14-36); Albumin 3.4 g/dl (3.5-5.0); Alkaline Phosphatase 133 U/L (38-126); Blood Urea Nitrogen 24 mg/dl (7-17); Calcium 9.0 mg/dl (8.4-10.2); Carbon Dioxide 24 mmol/L (22-30); Chloride 106 mmol/L (98-107); Estimated Creatinine Clearance 25 ml/min; Glucose 174 mg/dl (70-99); Potassium 4.0 mmol/L (3.5-5.1); Sodium 138 mmol/L (135-145); Total Protein 6.0 g/dl (6.3-8.2); eGFR > 60.00
[2024-11-15 12:04] VITALS: BP 139/72; PULSE 79; O2SAT 94
[2024-11-15 12:11] LABS: Glucose - Point of Care 257 mg/dl (70-99)
[2024-11-15] MEDS: NOVOLOG FLEXPEN-LOW RESISTANCE 3 UNITS SC (12:55)
--- NOTE | 2024-11-15 12:59 | W.DCSUMMARY ---
Discharge Summary
Discharge Data
Date of Admission: 11/13/24
Date of Discharge: 11/15/24
Total time spent discharging patient (in min): 40
-
Pending Results: No
Hospital Course
Principal Diagnosis:
Mechanical fall resulting in left proximal femur intertrochanteric fracture with mild displacement.
Acute post op blood loss anemia
Chronic Diagnoses:�
Prior femoral fracture requiring bone grafting
Uzm-nerizbs-vmiwfkppq diabetes, patient on metformin 1000 mg BID (A1C was still pending at the time of discharge)
HTN
Hypothyroidism
Pituitary dwarfism
Consultations:�
Orthopedic
Procedures:�
OR 11/13/2024 with Left hip cephalomedullary nail for intertrochanteric femur fracture by Dr. Cason
Clinical course:�
This is a 84-year-old female with past medical history as stated above, who presented with mechanical fall resulting in left hip pain.
She apparently slipped on a rug and fell to the ground.
Problem 1:
Mechanical fall resulting in left proximal femur intertrochanteric fracture with mild displacement.
She underwent Left hip cephalomedullary nail fixation for her intertrochanteric femur fracture by Dr. Cason on 11/13/2024.
Per ortho, she should WBAT on her LLE with assistive device.
She can continue ASA 325 mg daily x4 weeks for DVT ppx.
Surgical dressing to remain until 7-10 days post-op, and staple removal at 2 weeks post-op.
She was discharged to SNF per PT OT recommendation.
Her hemoglobin was noted to be trending downward, which was likely due to postop blood loss. She can check repeat CBC in 1 week, result to her PCP.
Problem 2:
Localized L sided chest pain likely musculoskeletal strain.
Dedicated L rib XR ruled out rib fractures.
She can continue lidocaine patch for local pain control.
Problem 3:
Mild Transaminitis, possible reactive.
He has been informed to hold Lipitor, and check LFT with the PCP.
As for the rest of her medical problems, they were stable during her hospital stay.
Discharge Plan
-
Patient Disposition: Skilled Nursing/SNF
Discharge Diagnosis/Procedures: Mechanical fall with left proximal femur intertrochanteric femoral fracture mild displacement, status post OR 11/13 with Left hip cephalomedullary nail by Dr. Cason;
Localized L sided chest pain likely musculoskeletal strain;
non-insulin diabetes;
pituitary dwarfism;
transaminitis
Condition: Fair
Diet: As tolerated and Diabetic, Carb Controlled
Activity: As tolerated
Additional Activity: WBAT LLE with assistive device.
Driving Restrictions: Not until seen by your Dr
Blood Work: CBC without diff and CMP with your PCP
Referrals:
Rosas Velasquez MD [Family Provider, [facility]] - in less than 1 week
Additional Discharge Medication Instructions: Continue ASA 325 mg daily x4 weeks for DVT prophylasix
Hold Lipitor for now until your LFT result is available. Defer to your PCP when to start Lipitor.
Prescriptions:
New
aspirin 325 mg Tablet
325 mg PO DAILY 28 Days Qty: 28 0RF
acetaminophen 325 mg Tablet
650 mg PO Q4HPRN PRN (Reason: headache, temp >101F) Qty: 14 0RF
oxycodone 5 mg Tablet
5 mg PO Q4HPRN PRN (Reason: mild pain) Qty: 5 0RF
sennosides-docusate sodium [Senokot-S] 8.6-50 mg tablet
1 tab-cap PO DAILY PRN (Reason: constipation) Qty: 14 0RF
(DME) CBC without diff
See Rx Instructions .Route .MEDSUPPLY Qty: 1 0RF
Rx Instructions:
11/19/2024 to 11/23/2024, result to your PCP
# Post op anemia
(DME) CMP
See Rx Instructions .Route .MEDSUPPLY Qty: 1 0RF
Rx Instructions:
11/19/2024 to 11/23/2024, result to your PCP
# Transaminitis
Continued
levothyroxine [Synthroid] 50 mcg Tablet
50 mcg PO DAILY
metoprolol succinate [Toprol XL] 25 mg Tablet Extended Release 24 Hr
25 mg PO DAILY
metformin 1,000 mg Tablet
1,000 mg PO BID
Held
atorvastatin [Lipitor] 40 mg Tablet
40 mg PO DAILY
Hold Instructions: Resume on 11/23/24. until outpatient LFT result, defer to your PCP
Discharge Orders:
Discharge Patient (As Directed); Ordered 11/15/24
Ordered By: Aubrie Mckeon
Discharge Date and Time
Print Language: THAI
[2024-11-15 13:29] LABS: Glycohemoglobin (HgbA1c) 6.5 % (4.0-5.6)
[2024-11-15 13:33] VITALS: BP 120/57
== END 2024-11-15 13:57 | DRG 481 ==
LOC: 2 SOUTH 01:25
PROVIDERS: Physician Assistant; ADMITTING PHYSICIAN Internal Medicine; ATTENDING PHYSICIAN Internal Medicine; CONSULT PHYSICIAN Student in an Organized Health Care Education/Training Program; EMERGENCY PHYSICIAN Emergency Medicine; FAMILY PHYSICIAN Family Medicine
PROC: 0QS706Z Reposition Left Upper Femur with Intramedullary Internal Fixation Device, Open Approach (ICD-10-PCS; 2024-11-13)
DX: S72.142A Displaced intertrochanteric fracture of left femur, initial encounter for closed fracture (principal); D62 Acute posthemorrhagic anemia; E87.1 Hypo-osmolality and hyponatremia; E23.0 Hypopituitarism; E11.9 Type 2 diabetes mellitus without complications; I10 Essential (primary) hypertension; E03.9 Hypothyroidism, unspecified; W01.0XXA Fall on same level from slipping, tripping and stumbling without subsequent striking against object, initial encounter; D72.829 Elevated white blood cell count, unspecified; R74.01 Elevation of levels of liver transaminase levels; K59.00 Constipation, unspecified; Z79.84 Long term (current) use of oral hypoglycemic drugs; Z79.890 Hormone replacement therapy; Z79.899 Other long term (current) drug therapy
CPT/HCPCS: 71045; 71100; 73502; 73552; 76000; 80053; 81003; 82550; 82947; 82962; 83036; 83735; 85025; 85610; 85730; 86850; 86900; 86901; 97163; 97167; 97530; 97535; 99285; C1713; C1769

== ENCOUNTER → 2024-11-20 11:36 | Outpatient (REF) | payer OTHER, SELFPAY ==
[2024-11-20 13:13] LABS: Hematocrit 25.1 % (37.0-47.0); Hemoglobin 8.1 g/dL (12.0-16.0); Mean Corp Hgb Conc. 32.3 g/dL (33.0-37.0); Mean Corpuscular Volume 92.6 fL (81.0-99.0); Nucleated Red Blood Cells % 0.8 %; Platelet Count 531 10^3/uL (130-400); Red Cell Dist. Width 18.0 % (11.5-14.5)
[2024-11-20 13:16] LABS: ALT (SGPT) 119 U/L (0-35); AST (SGOT) 80 U/L (14-36); Albumin 3.2 g/dl (3.5-5.0); Alkaline Phosphatase 461 U/L (38-126); Blood Urea Nitrogen 14 mg/dl (7-17); Calcium 9.4 mg/dl (8.4-10.2); Carbon Dioxide 24 mmol/L (22-30); Chloride 107 mmol/L (98-107); Glucose 185 mg/dl (70-99); Potassium 4.7 mmol/L (3.5-5.1); Sodium 138 mmol/L (135-145); Total Protein 5.8 g/dl (6.3-8.2); eGFR > 60.00
== END ==
LOC: OLABN 11:36
PROVIDERS: ATTENDING PHYSICIAN Student in an Organized Health Care Education/Training Program
DX: D64.9 Anemia, unspecified (principal); R74.01 Elevation of levels of liver transaminase levels
CPT/HCPCS: 36415; 80053; 85025

== ENCOUNTER → 2024-11-23 09:30 | Outpatient (REF) | payer OTHER, SELFPAY ==
[2024-11-23 10:01] LABS: ALT (SGPT) 67 U/L (0-35); AST (SGOT) 52 U/L (14-36); Albumin 3.4 g/dl (3.5-5.0); Alkaline Phosphatase 458 U/L (38-126); Blood Urea Nitrogen 19 mg/dl (7-17); Calcium 9.3 mg/dl (8.4-10.2); Carbon Dioxide 24 mmol/L (22-30); Chloride 108 mmol/L (98-107); Glucose 150 mg/dl (70-99); Potassium 4.8 mmol/L (3.5-5.1); Sodium 139 mmol/L (135-145); Total Protein 6.0 g/dl (6.3-8.2); eGFR > 60.00
[2024-11-23 10:02] LABS: Hematocrit 26.9 % (37.0-47.0); Hemoglobin 8.8 g/dL (12.0-16.0); Mean Corp Hgb Conc. 32.7 g/dL (33.0-37.0); Mean Corpuscular Volume 94.4 fL (81.0-99.0); Nucleated Red Blood Cells % 0.4 %; Platelet Count 677 10^3/uL (130-400); Red Cell Dist. Width 19.2 % (11.5-14.5)
== END ==
LOC: OLABN 09:30
PROVIDERS: ATTENDING PHYSICIAN Student in an Organized Health Care Education/Training Program
DX: R74.01 Elevation of levels of liver transaminase levels (principal); E11.9 Type 2 diabetes mellitus without complications
CPT/HCPCS: 36415; 80053; 85025

== ENCOUNTER → 2024-11-28 11:17 | Outpatient (REF) | payer OTHER, SELFPAY ==
[2024-11-28 12:06] LABS: Hematocrit 29.4 % (37.0-47.0); Hemoglobin 9.0 g/dL (12.0-16.0); Mean Corp Hgb Conc. 30.6 g/dL (33.0-37.0); Mean Corpuscular Volume 99.7 fL (81.0-99.0); Nucleated Red Blood Cells % 0.1 %; Platelet Count 851 10^3/uL (130-400); Red Cell Dist. Width 19.9 % (11.5-14.5)
[2024-11-28 13:38] LABS: ALT (SGPT) 49 U/L (0-35); AST (SGOT) 50 U/L (14-36); Albumin 3.5 g/dl (3.5-5.0); Alkaline Phosphatase 385 U/L (38-126); Blood Urea Nitrogen 18 mg/dl (7-17); Calcium 9.5 mg/dl (8.4-10.2); Carbon Dioxide 23 mmol/L (22-30); Chloride 109 mmol/L (98-107); Glucose 140 mg/dl (70-99); Potassium 5.5 mmol/L (3.5-5.1); Sodium 138 mmol/L (135-145); Total Protein 6.0 g/dl (6.3-8.2); eGFR > 60.00
== END ==
LOC: OLABN 11:17
PROVIDERS: ATTENDING PHYSICIAN Student in an Organized Health Care Education/Training Program
DX: D64.9 Anemia, unspecified (principal); R74.01 Elevation of levels of liver transaminase levels
CPT/HCPCS: 36415; 80053; 85025

== ENCOUNTER → 2024-11-30 12:30 | Outpatient (REF) | payer OTHER, SELFPAY ==
[2024-11-30 14:36] LABS: Hematocrit 28.7 % (37.0-47.0); Hemoglobin 8.7 g/dL (12.0-16.0); Mean Corp Hgb Conc. 30.3 g/dL (33.0-37.0); Mean Corpuscular Volume 99.0 fL (81.0-99.0); Platelet Count 826 10^3/uL (130-400); Red Cell Dist. Width 20.1 % (11.5-14.5)
[2024-11-30 14:48] LABS: Blood Urea Nitrogen 18 mg/dl (7-17); Calcium 9.3 mg/dl (8.4-10.2); Carbon Dioxide 24 mmol/L (22-30); Chloride 107 mmol/L (98-107); Glucose 136 mg/dl (70-99); Potassium 5.0 mmol/L (3.5-5.1); Sodium 136 mmol/L (135-145); eGFR > 60.00
== END ==
LOC: OLABN 12:30
PROVIDERS: ATTENDING PHYSICIAN Student in an Organized Health Care Education/Training Program
DX: R74.01 Elevation of levels of liver transaminase levels (principal); D64.9 Anemia, unspecified
CPT/HCPCS: 36415; 80048; 85027

== ENCOUNTER → 2024-12-05 11:00 | Outpatient (REF) | payer OTHER, SELFPAY ==
[2024-12-05 13:07] LABS: Hematocrit 31.2 % (37.0-47.0); Hemoglobin 9.5 g/dL (12.0-16.0); Mean Corp Hgb Conc. 30.4 g/dL (33.0-37.0); Mean Corpuscular Volume 99.0 fL (81.0-99.0); Platelet Count 797 10^3/uL (130-400); Red Cell Dist. Width 20.2 % (11.5-14.5)
== END ==
LOC: OLABN 11:00
PROVIDERS: ATTENDING PHYSICIAN Student in an Organized Health Care Education/Training Program
DX: D72.829 Elevated white blood cell count, unspecified (principal)
CPT/HCPCS: 36415; 85027

== ENCOUNTER 2025-01-17 08:13 | Inpatient (IN) | payer OTHER, MEDICARE, SELFPAY ==
[2025-01-14 15:42] VITALS: BP 137/88
--- NOTE | 2025-01-14 17:10 | ED.MUSCINJ ---
HPI-Injury
General
Chief Complaint: Musculo-Skeletal Complaint
Source: patient
Exam Limitations: none
Time Seen by Provider: 01/14/25 16:51
Nursing documentation reviewed up to this point in time: agreed with
History of Present Illness-Injury
Is this injury a work related problem?: No
Is pt an associate of [facility]/[place]?: No
Initial Injury comments:
Patient is emergency department with complaint of left hip and knee pain. She fell on 11/13 and sustianed a left hip fracture. ORIF of of hip completed by Dr. Cason. She was discharged from the hospital and sent to inpatient rehab for 4 weeks.
Since being home she has participated in in-home PT but advanced to outpatient therapy states she participated in PT at the new facility with a new therapist on Tuesday. Tuesday she woke up with pain to her left hip and knee. Pain continues to
increase. Denies any swelling or bruising to joints. Denies any falls. Taking Exer strength Tylenol without relief. States she has a prescription for oxycodone but she states she refuses to take opioid medications. Brought to the emergency
department via EMS for evaluation.
Past History
Past History
ED Past Medical History: HTN, Hypercholesterolemia, NIDDM, Hypothyroidism and Other (Papillary mucinosis neoplasm, pituitary dwarism)
ED Past Surgical History: Other (distal pancreatectomy, spleenectomy, bone graft left distal femur)
Review of Systems
Review of Systems
Allergies reviewed?: Yes
All Other Systems: ROS reviewed and negative except as documented in HPI and ROS
Constitutional: Reports no symptoms
EENT: Reports no symptoms
Respiratory: Reports no symptoms
Cardiac: Reports no symptoms
ABD/GI: Reports no symptoms
Musculoskeletal: Reports joint pain (pain to left hip)
Skin: Reports no symptoms
Neurological: Reports no symptoms
Psychiatric: Reports no symptoms
Musculoskeletal Injury Exam
Musculoskeletal Injury Exam
Left Hip:
Pain with Movement?: None (No pain with movement. Pain with weightbearing)
Tender to palpation?: None
Soft tissue swelling?: None
External deformity and angulation?: None
Joint effusion?: None
Contusion?: None
Hematoma-local bleeding into tissue?: None
Strain- Sprain- Tear (Connective tissue injury)?: Moderate
Crepitus with movement?: No
Joint instability?: No
Malalignment/deformity?: No
Range of motion: Limited
Distal skin color and temperature: normal-warm & good color
Capillary Refill: normal
Normal distal neurovascular exam?: Yes
Phy Exam
General Physical Exam
General Presentation: other (No distress when at rest. Moderate to distress with weightbearing)
General age: appears stated age
General Skin: dry
General Mental: alert
Musculoskeletal Exam
Musculoskeletal Exam: neuro vasc intact and other (Patient with pain to left hip groin and thigh with weightbearing only. No pain to palpation. No redness swelling or bruising noted)
Skin Exam
Skin Exam: normal color, warm/dry and no rash
Psychiatric Exam
Psychiatric Exam: normal mood/affect
Injury Course
Orders/Labs/Results
Orders:
Orders
01/14/25 17:09
Hip, Left 2-3 Views [CR Hip - LT w/wo Pel 2-3 Vw*] Urgent
Comment:
Reason For Exam: pain
Include a pelvis x-ray?: Yes
Knee, Left 4 or More Views [CR Knee - Left 4 Or More View*] Urgent
Comment:
Reason For Exam: pain
01/14/25 19:18
Acetaminophen [Tylenol] 1,000 mg PO NOW STA
01/14/25 19:55
Acetaminophen [Tylenol] 1,000 mg .ROUTE .STK-MED ONE
01/14/25 22:15
Admit/Transfer Patient As Directed
Co-Sign Provider:
Level of Care: Observation services
Assign to:: Medical/Surgical
Physician / Group: belinda
Diagnosis: left hip pain
PRN Pain Medication Management As Directed
May give lesser potent ordered pain med per pt: Yes
preference::
Protocol:: Medication orders for pain may be administered in a
manner that supports deferring to patient preference
when the pt is:
- Requesting an ordered lesser potent pain medication.
Least to most potent pain medications are defined
as: acetaminophen < NSAID < tramadol < opioids
(morphine, oxycodone, hydromorphone).
- Requesting a lesser dose of the same medication IF
ORDERED.
- Requesting a less intrusive route of administration
if both routes are prescribed by the provider (PO <
IV).
01/14/25 22:16
Code Status As Directed
Resuscitation Status: Full Code
*Pulse Oximetry
SaO2: 98
Oxygen Mode of Delivery: Room air
Patient hypoxic: no
*Critical Care Note
Total Time (30-74mins, 75-104mins- exclusive of procedures): Not Applicable
Update Note
Update Note:
Patient to the emergency department for evaluation of left hip pain. She had a trip and fall in October and fractured this hip. ORIF of hip was performed by Dr. Cason. She was discharged to a nursing facility for 4 weeks, and then returned
home. She has been receiving in-home PT up until last week. At that time she transition to outpatient PT. She states she had her first PT session on Tuesday. Tuesday she had a difficult time weightbearing due to increasing pain. Pain is
continued to increase but only with weightbearing. She is comfortable at rest. There is no pain with PROM. X-ray reviewed, no acute fracture noted. She takes Tylenol Extra Strength typically for her pain. She declines any narcotic pain
medication. She is unable to take NSAIDs. She is unable to care for self at this point due to her difficulties with weightbearing. Will admit to the hospital service for ambulatory dysfunction.
ED Attending Note
-
Portions of this chart may have been created with voice recognition software.� Occasional wrong word or��sound alike� substitutions may have occurred due to the inherent limitations of voice recognition software.
Discharge Plan
Departure
Patient Disposition: Admit
Date of Disposition: 01/14/25
Time of Disposition: 21:47
Presentation/result/management discussed w/ accepting MD/DO: Hospitalist
Patient with high blood pressure during this ER visit?: No
Condition: Fair
Covid-19: Not Applicable
Discharge Problem:
Ambulatory dysfunction
Interventions
Interventions:
*Risk Screen - Suicide Last Done: 01/14/25 15:42
*General Assessment Last Done: 01/14/25 15:42
*Neglect/Abuse Screening Last Done: 01/14/25 15:42
ED-Musculoskeletal Assessment Last Done: 01/14/25 16:19
[2025-01-14] MEDS: TYLENOL 1000 MG PO (19:56)
--- NOTE | 2025-01-14 22:18 | HPS.HSE ---
Family Physician
-
Family Physician: Rosas Velasquez
Chief Complaint
-
left hip pain
History of Present Illness
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 She fell on
11/13 and sustained a left hip fracture. She underwent ORIF of hip completed by Dr. Cason. She was discharged to rehab for 4 weeks. Since then she has participated in home physical therapy. 2 days ago she woke up with pain of her left hip and
knee only with weightbearing. Pain is worsening. Denies any swelling or bruising of the joints. Denies any falls. She is taking extra strength Tylenol without relief. She has prescription for oxycodone but refuses to take opioid medications.
She denies alcohol use.
Medical History
Past Medical History
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
Past Surgical History: Reports Other ((distal pancreatectomy, spleenectomy, bone graft left distal femur))
Social History
Tobacco: Non-smoker
Alcohol: None
Drug: None
Family History
Family History: Not pertinent
Allergies / Home Medications
Allergies reflects when Allergies were last updated in [employer].
Home Medications with original date entered in [employer]
Allergy/Medication List:
Allergies
Allergy/AdvReac Type Severity Reaction Status Date / Time
Penicillins Allergy Anaphylaxis Verified 01/14/25 15:48
vancomycin Allergy Anaphylaxis Verified 01/14/25 15:48
Home Medications
atorvastatin 40 mg tablet (Lipitor) 40 mg PO DAILY 11/13/24
Held on 11/15/24. Instructions: Resume on 11/23/24. until outpatient LFT result, defer to your PCP
levothyroxine 50 mcg tablet (Synthroid) 50 mcg PO DAILY 11/13/24
metformin 1,000 mg tablet 1,000 mg PO BID 11/13/24
metoprolol succinate 25 mg tablet,extended release 24 hr (Toprol XL) 25 mg PO DAILY 11/13/24
CBC without diff #1 ea 11/15/24
CMP #1 ea 11/15/24
acetaminophen 325 mg tablet 650 mg (2 x 325 mg) PO Q4HPRN PRN headache, temp >101F #14 tabs 11/15/24
aspirin 325 mg tablet 325 mg PO DAILY 4 weeks #28 tabs 11/15/24
oxycodone 5 mg tablet 5 mg PO Q4HPRN PRN mild pain #5 tabs 11/15/24
sennosides 8.6 mg-docusate sodium 50 mg tablet (Senokot-S) 1 tab-cap PO DAILY PRN constipation #14 tabs 11/15/24
Review of Systems
-
History Source: Patient
A 12 point ROS was completed and negative except as noted: Yes
Constitutional: Reports No Symptoms
EENT: Reports No Symptoms
Respiratory: Reports No Symptoms
Cardiac: Reports No Symptoms
Abdomen/GI: Reports No Symptoms
: Reports No Symptoms
Musculoskeletal: Reports No Symptoms
Skin: Reports No Symptoms
Neurological: Reports No Symptoms
Endocrine: Reports No Symptoms
Hematologic/Lymphatic: Reports No Symptoms
Psych: Reports No Symptoms
Physical Exam
Vital Signs
Vital Signs
Temp Pulse Resp BP Pulse Ox
98.0 F 86 16 137/88 98
01/14/25 15:42 01/14/25 15:42 01/14/25 15:42 01/14/25 15:42 01/14/25 17:12
Physical Exam
General: Well Developed, Well Nourished and No Apparent Distress
HEENT: NormoCephalic, Moist mucous membranes and Atraumatic
Respiratory: Clear
Cardiac: S1/S2 and Regular Rhythm; No Murmur or Rub
GI: Soft, Non Tender, Non Distended and Normal Bowel Sounds; No Organomegaly
Rectal: Deferred by Provider
Musculoskeletal: No Clubbing, No Cyanosis and No Edema
Skin: No Rash
Neuro: Nonfocal/grossly intact
Data Reviewed
-
Lab Data: Labs Reviewed by me
Old Records: Reviewed
Impression/Plan
-
IMPRESSION:
PLAN:
# Worsening left hip/knee pain
# Left hip fracture status post ORIF for intertrochanteric hip fracture on 11/13
- Knee and hip x-ray report pending, reportedly no abnormality as per ER
- Based on x-rays likely will require orthopedic input given recent left hip surgery by Dr. Cason
- PT OT
Hypothyroidism
- Continue levothyroxine
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
Type 2 diabetes
- Continue metformin
Pituitary dwarfism
Essential hypertension
- Continue metoprolol
Hyponatremia
Chronic anemia
- Hemoglobin stable 9.5
Full code
DVT prophylaxis�heparin
Regular diet
--- NOTE | 2025-01-14 22:45 | PTCARENOTE ---
Pt arrived from ED via stretcher, Pt transferred to bed. Pt aaox3, cooperative. C/o mild L hip/knee pain with movement. +cms. oriented to room. Call bales within reach.
[2025-01-14 23:17] VITALS: BP 166/87; BMI 20.5
[2025-01-15] MEDS: SYNTHROID 50 MCG PO (06:03)
[2025-01-15 07:00] VITALS: BP 128/77
[2025-01-15 07:17] LABS: Hematocrit 36.9 % (37.0-47.0); Hemoglobin 11.5 g/dL (12.0-16.0); Mean Corp Hgb Conc. 31.2 g/dL (33.0-37.0); Mean Corpuscular Volume 94.9 fL (81.0-99.0); Nucleated Red Blood Cells % 0 %; Platelet Count 536 10^3/uL (130-400); Red Cell Dist. Width 16.8 % (11.5-14.5)
--- NOTE | 2025-01-15 07:33 | W.PN.HOSP.TC ---
Today's Communication/Plan
-
Awaiting transfer to [place]
See plan
Assessment / Plan
Assessment / Plan
Physical Exam
General: Well Developed, Well Nourished and No Apparent Distress
HEENT: Normocephalic, Moist mucous membranes and Atraumatic
Respiratory: Clear
Cardiac: S1/S2 and Regular Rhythm
GI: Soft, Non Tender, Non Distended and Normal Bowel Sounds
Musculoskeletal: No Cyanosis and No Edema. Pain on passive or active range of motion of the left hip and left knee.
Skin: Warm. Dry.
Neuro: Nonfocal/grossly intact
Assessment/Plan
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 She
fell on 11/13/24 and sustained a left hip fracture. She underwent ORIF of hip completed by Dr. Cason. She was then discharged to rehab for 4 weeks. Since then she has participated in home physical therapy. On 01/12/25, patient woke up with pain of
her left hip and knee, but the pain came on only with weightbearing. Pain was reported to have been worsening. Patient denied any swelling or bruising of the joints; she also denied any falls. She had been taking extra strength Tylenol without
relief. She has prescription for oxycodone but refused to take opioid medications.
# Worsening left hip/knee pain
# Left hip fracture status post ORIF for intertrochanteric hip fracture on 11/13
- Per orthopedics, x-ray and CT imaging revealed previously placed cephalomedullary nail with x-ray findings suspicious for cutout/failure. CT scan correlates these findings.
- Discussed with Dr. Larson that patient's left hip hardware has failed, and that she will be in need of a conversion surgery in the form of arthroplasty, but given her pituitary dwarfism (and the fact that her [place] anatomy is too small to be
accommodated in a [facility] like [facility] -- replacement hardware would be that of a child's, for instance, for a tumor surgery), orthopedics recommended patient be transferred to Dr. Rankin's service at [facility].
-Dr. 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
Dr. Larson contacted the transfer center and they will work on the transfer but said it could take a few days because of high census.
-Low concern for infection being afebrile, WBC 11.7, ESR 33, and CRP of 8.8. The patient has a documented history at [facility], with her only surgery outside of [facility]' being here at .
-Patient's grandson is also an Warehouse Shipping Associate at [facility] and is very comfortable with the transfer.
-Activity: Remain bedrest for now, but may transfer to chair.
-Orthopedics spoke on 01/15/25 to the patient's daughter, Julianne, via phone, at the patient's request
-PT/OT
Hypothyroidism
- Continue levothyroxine
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
Type 2 diabetes
- Continue metformin
Pituitary dwarfism
Essential hypertension
- Continue metoprolol
Hyponatremia
Chronic anemia
- Hemoglobin stable 9.5
Full code
DVT prophylaxis�heparin
Regular diet
Anticipated Discharge: > 48 hours
Subjective/Interval History
-
Date of Service: January 15, 2025
Patient was seen and examined. She denied any new symptoms or complaints.
Objective Data
-
Labs:
Laboratory Results
01/15/25
06:59
WBC 11.7 H
Hgb 11.5 L
Hct 36.9 L
Plt Count 536 H
Sodium Pending
Potassium Pending
Chloride Pending
Carbon Dioxide Pending
BUN Pending
Creatinine Pending
Glucose Pending
Calcium Pending
Vital Signs:
Vital Signs
Temp Pulse Resp BP Pulse Ox
98.1 F 77 14 166/87 97
01/14/25 23:17 01/14/25 23:17 01/14/25 23:17 01/14/25 23:17 01/14/25 23:17
I&O
01/14/25 01/15/25 01/16/25
06:59 06:59 06:59
Intake Total 240 / 240
Balance 240 / 240
[2025-01-15 07:55] LABS: Blood Urea Nitrogen 17 mg/dl (7-17); Calcium 10.1 mg/dl (8.4-10.2); Carbon Dioxide 29 mmol/L (22-30); Chloride 103 mmol/L (98-107); Estimated Creatinine Clearance 29 ml/min; Glucose 180 mg/dl (70-99); Potassium 4.4 mmol/L (3.5-5.1); Sodium 139 mmol/L (135-145); eGFR > 60.00
[2025-01-15] MEDS: GLUCOPHAGE 1000 MG PO ×2 (09:06→17:58)
[2025-01-15] MEDS: TOPROL XL 25 MG PO (09:06)
--- NOTE | 2025-01-15 10:27 | CON.ORTHO ---
Consultation
-
Date/Time Consultation Requested: Jan 22
Date/Time Consultation Performed: Jan 22
Requesting Provider: [facility]
Performing Provider: Serena Larson
Reason for Consultation: Increased left hip pain s/p ORIF Nov 22
Consultation - Orthopedics
History
History of Present Illness:
Patient is emergency department with complaint of left hip and knee pain. She fell on Nov 22 and sustained a left hip fracture. ORIF of of hip completed by Dr. Cason. She was discharged from the hospital and sent to inpatient rehab for 4
weeks. Since being home she has participated in in-home PT but advanced to outpatient therapy states she participated in PT at the new facility with a new therapist on Tuesday. Tuesday she woke up with pain to her left hip and knee yesterday. No
trauma. Pain continues to increase. Denies any swelling or bruising to joints. Denies any falls. Taking Exer strength Tylenol without relief. Brought to the emergency department via EMS for evaluation. Xrays with some concern for hardware
failure, therefore CT scan has been requested to correlate. She has also been ordered acute reactant inflammatory markers as well. Denies any constitutional symptoms. She was recently seen outpatient by Dr. Cason, and short of expected discomfort
around the hip, she was up ambulatory and doing well, as expected.
Past Medical History:
HTN, Hypercholesterolemia, NIDDM, Hypothyroidism Papillary mucinosis neoplasm, pituitary dwarfism
Past Surgical History:
distal pancreatectomy
splenectomy
bone graft left distal femur
ORIF left hip (Oct 2024)
Family History:
Non-contributory
Social History:
Denies ETOH
Denies illicit drugs
Denies Tobacco
[place]ives at [place]
Review of Systems:
12 point negative except those mentioned in the HPI
Allergies / Home Medications
Allergy/AdvReac Type Severity Reaction Status Date / Time
Penicillins Allergy Anaphylaxis Verified 01/14/25 15:48
vancomycin Allergy Anaphylaxis Verified 01/14/25 15:48
�Medication �Instructions �Recorded
atorvastatin 40 mg tablet (Lipitor) 40 mg PO 1800 High Cholesterol 11/13/24
Held on 11/15/24.
Instructions: Resume on
11/23/24. until outpatient
LFT result, defer to your PCP
levothyroxine 50 mcg tablet 50 mcg PO DAILY Thyroid 11/13/24
(Synthroid)
metformin 1,000 mg tablet 1,000 mg PO BID Diabetes 11/13/24
metoprolol succinate 25 mg 25 mg PO DAILY Blood Pressure 11/13/24
tablet,extended release 24 hr
(Toprol XL)
CBC without diff #1 ea 11/15/24
CMP #1 ea 11/15/24
acetaminophen 325 mg tablet 650 mg (2 x 325 mg) PO Q4HPRN PRN 11/15/24
headache, temp >101F #14 tabs
oxycodone 5 mg tablet 5 mg PO Q4HPRN PRN mild pain #5 11/15/24
tabs
sennosides 8.6 mg-docusate sodium 1 tab-cap PO DAILY PRN 11/15/24
50 mg tablet (Senokot-S) constipation #14 tabs
aspirin 325 mg tablet 325 mg PO DAILY Blood Clot 01/15/25
Prevention/Tx
Vital Signs / Lab Results
Temp Pulse Resp BP Pulse Ox
98 F 75 12 128/77 96
01/15/25 07:00 01/15/25 07:00 01/15/25 07:00 01/15/25 07:00 01/15/25 07:00
01/15/25 06:59
01/15/25 06:59
Assessment / Plan
PE: Afeb. Bedrest. LLE. Left hip/knee with scars from previous surgery. No signs of infection. Pain about the left hip. + logroll LLE. Painful restricted ROM Left hip. Calf soft, nontender. DNVI LLE
Diagnostics:
Xray and CT reveal previous placed cephalomedullary nail with xray findings suspicious for cutout/failure. CT scan correlates these findings. Healing noted about the IT region of the femur. Previous bone grafting noted of the distal femur. No
significant left hip OA noted.
Impression: VITA
Plan: Unfortunately the patient's hardware has failed. She will be in need of a conversion surgery in the form of arthroplasty. Given her overall clinical picture, most notably her pituitary dwarfism, her [place] anatomy is too small to be
accommodated in a community hospital like . We have recommended patient be transferred to Dr. Rankin's service at [facility]. Replacement hardware would be that of a child's, for instance, for a tumor surgery. I discussed at length with the patient
and she is comfortable with this plan. Low concern for infection being afebrile, WBC 11.7, ESR 33, and CRP of 8.8. The patient has a documented history at [facility], with her only surgery outside of [facility] being here at . Her grandson is also an Ortho
Tech at [facility] and is very comfortable with the transfer. Will speak to attending Hospitalist, Dr. Loja. We will be making contact with the transfer center to initiate. Hopefully that can be accomplished within 24 hours and surgery can be
completed by the week's end. Patient to remain bedrest for now, but may transfer to chair. Orthopaedics here at to sign off for now. Please reengage with any pertinent questions or if there is any hold up with the transfer other than bed
availability, etc. Spoke to the patient's daughter, Julianne, via phone, at the patient's request
[2025-01-15 11:26] LABS: C-Reactive Protein 8.80 mg/L (0.0-10.00)
--- NOTE | 2025-01-15 14:37 | W.PN.UPDATE ---
Update Note
Progress Note Update
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 Needs total hip. Femoral head measures 32 mm in diameter which is much smaller than smallest available total hip implant available to us. I reached out to Dr. Rankin, tumor surgeon at [facility]
who has experience in pediatric replacement surgery due to tumors. She agreed [place] to [place] is appropriate and I contacted transfer center to initiate. Reji coronado w. patient who is in agreement. Anticoagulation ok till transfer.
[2025-01-15 15:00] VITALS: BP 143/76
--- NOTE | 2025-01-15 16:54 | PTCARENOTE ---
patient refusing SC heparin- explained to patient purpose of medication and that she is at risk for getting blood clots in her legs- voiced understanding and patient still refused. Dr Loja made aware. plan of care on going.
--- NOTE | 2025-01-15 17:13 | PTCARENOTE ---
patient again educated about risk of DVT's- Dr Loja ordered SCD's since patient refusing heparin SC. explained to patient SCDs and she refused them. strongly encouraged patient to take some form of DVT prevention. she agreed to take heparin.
Dr Loja aware.
[2025-01-15] MEDS: HEPARIN 5000 UNITS SC (17:58)
[2025-01-15] MEDS: LIPITOR 40 MG PO (17:59)
[2025-01-15] MEDS: TYLENOL 650 MG PO (18:07)
[2025-01-15 23:10] VITALS: BP 166/85
--- NOTE | 2025-01-16 03:14 | DOWNTIME ---
There was a [employer] Client [employer] District Manager Downtime on 01/16/2025 from 0100 to 01/16/2025 at 0255. Downtime documentation of patient's care, including medication administrations, has been reconciled in the electronic record per guidelines. Refer to the
patient's paper chart under the miscellaneous tab to see printed paper medication records and downtime forms.
[2025-01-16] MEDS: SYNTHROID 50 MCG PO (05:03)
[2025-01-16] MEDS: HEPARIN 5000 UNITS SC ×2 (05:04→17:45)
[2025-01-16 06:52] LABS: Hematocrit 35.3 % (37.0-47.0); Hemoglobin 11.0 g/dL (12.0-16.0); Mean Corp Hgb Conc. 31.2 g/dL (33.0-37.0); Mean Corpuscular Volume 95.1 fL (81.0-99.0); Platelet Count 481 10^3/uL (130-400); Red Cell Dist. Width 16.5 % (11.5-14.5)
[2025-01-16 07:13] LABS: Blood Urea Nitrogen 23 mg/dl (7-17); Calcium 9.6 mg/dl (8.4-10.2); Carbon Dioxide 26 mmol/L (22-30); Chloride 103 mmol/L (98-107); Estimated Creatinine Clearance 25 ml/min; Glucose 112 mg/dl (70-99); Potassium 4.4 mmol/L (3.5-5.1); Sodium 137 mmol/L (135-145); eGFR > 60.00
--- NOTE | 2025-01-16 07:29 | W.PN.HOSP.TC ---
Today's Communication/Plan
-
Awaiting transfer to [place]
Assessment / Plan
Assessment / Plan
Physical Exam
General: Well Developed, Well Nourished and No Apparent Distress
HEENT: Normocephalic, Moist mucous membranes and Atraumatic
Respiratory: Clear
Cardiac: S1/S2 and Regular Rhythm
GI: Soft, Non Tender, Non Distended and Normal Bowel Sounds
Musculoskeletal: No Cyanosis and No Edema. Pain on passive or active range of motion of the left hip and left knee. LLE neurovascularly intact.
Skin: Warm. Dry.
Neuro: Nonfocal/grossly intact
Assessment/Plan
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 She
fell on 11/13/24 and sustained a left hip fracture. She underwent ORIF of hip completed by Dr. Cason. She was then discharged to rehab for 4 weeks. Since then she has participated in home physical therapy. On 01/12/25, patient woke up with pain of
her left hip and knee, but the pain came on only with weightbearing. Pain was reported to have been worsening. Patient denied any swelling or bruising of the joints; she also denied any falls. She had been taking extra strength Tylenol without
relief. She has prescription for oxycodone but refused to take opioid medications.
# Worsening left hip/knee pain
# Left hip fracture status post ORIF for intertrochanteric hip fracture on 11/13
- Per orthopedics, x-ray and CT imaging revealed previously placed cephalomedullary nail with x-ray findings suspicious for cutout/failure. CT scan correlates these findings.
- Discussed with Dr. Larson that patient's left hip hardware has failed, and that she will be in need of a conversion surgery in the form of arthroplasty, but given her pituitary dwarfism (and the fact that her [place] anatomy is too small to be
accommodated in a community hospital like [facility] -- replacement hardware would be that of a child's, for instance, for a tumor surgery), orthopedics recommended patient be transferred to Dr. Rankin's service at [facility].
-Dr. 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
Dr. Larson contacted the transfer center and they will work on the transfer but said it could take a few days because of high census.
-Low concern for infection being afebrile, WBC 11.7, ESR 33, and CRP of 8.8. The patient has a documented history at [facility], with her only surgery outside of [facility]' being here at .
-Patient's grandson is also an Pharmacogeneticist at [facility] and is very comfortable with the transfer.
-Activity: Remain bedrest for now, but may transfer to chair.
-Orthopedics spoke on 01/15/25 to the patient's daughter, Julianne, via phone, at the patient's request
-PT/OT
Hypothyroidism
- Continue levothyroxine
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
Type 2 diabetes
- Continue metformin
Pituitary dwarfism
Essential hypertension
- Continue metoprolol
Hyponatremia
Chronic anemia
- Hemoglobin stable 9.5
Full code
DVT prophylaxis�heparin
Regular diet
Anticipated Discharge: 24 - 48 hours
Subjective/Interval History
-
Date of Service: January 16, 2025
Patient was seen and examined. She denied any new symptoms or complaints.
Objective Data
-
Labs:
Laboratory Results
01/16/25 01/16/25
06:08 06:09
WBC 12.8 H
Hgb 11.0 L
Hct 35.3 L
Plt Count 481 H
Sodium 137
Potassium 4.4
Chloride 103
Carbon Dioxide 26
BUN 23 H
Creatinine 0.7
Glucose 112 H
Calcium 9.6
Vital Signs:
Vital Signs
Temp Pulse Resp BP Pulse Ox
97.7 F 62 15 166/85 96
01/15/25 23:10 01/15/25 23:10 01/15/25 23:10 01/15/25 23:10 01/15/25 23:10
I&O
01/15/25 01/16/25 01/17/25
06:59 06:59 06:59
Intake Total 240 / 240 480 / 480
Balance 240 / 240 480 / 480
[2025-01-16 08:01] VITALS: BP 178/80
[2025-01-16] MEDS: GLUCOPHAGE 1000 MG PO ×2 (09:13→17:45)
[2025-01-16] MEDS: TOPROL XL 25 MG PO (09:13)
--- NOTE | 2025-01-16 09:15 | CM ---
Late entry for 01/15/25
IA completed. Pt lives with Dtr, Son-in-law and 5 grandchildren in an apt her dtr's home. INdependent in ADLs and IADLs Phas no hx of home O2. No insecurities identified. Confirme PCP, Rx. insurance and drug coverage
Uses a rolling walker. Also has a cane which is not in use.
Hx of Home care with [facility] for PT and OT
Hx of SNf at [facility]
Awaiting trn to [facility] for total hip-surgery
Plan: Trn to [facility] when bed is available
PCP: Rosas Velasquez
Rx' Chris /Chente
--- NOTE | 2025-01-16 13:09 | CM ---
Awaiting trn to [facility] for total hip-surgery. anticoagulation ongoing.
Plan: Trn to [facility] when bed is available
[2025-01-16 15:28] VITALS: BP 134/60
--- NOTE | 2025-01-16 16:26 | PTCARENOTE ---
Pt AAO x3, DAMON;OOB to BSC with assist x1, pt moves LLE slowly d/t hip discomfort with movement. VSS. On room air- pulse ox 96%, no SOB noted. Abd soft, miguelangel PO, appetite fiar. Voids on BSC without difficulty. Resting in bed at present. Will
continue to monitor.
[2025-01-16] MEDS: LIPITOR 40 MG PO (17:45)
[2025-01-16 23:13] VITALS: BP 129/56
[2025-01-17] MEDS: SYNTHROID 50 MCG PO (05:34)
[2025-01-17] MEDS: HEPARIN 5000 UNITS SC ×2 (05:34→18:18)
[2025-01-17 07:36] VITALS: BP 176/81
[2025-01-17 07:36] LABS: Hematocrit 36.1 % (37.0-47.0); Hemoglobin 11.6 g/dL (12.0-16.0); Mean Corp Hgb Conc. 32.1 g/dL (33.0-37.0); Mean Corpuscular Volume 93.5 fL (81.0-99.0); Platelet Count 475 10^3/uL (130-400); Red Cell Dist. Width 16.5 % (11.5-14.5)
[2025-01-17 07:55] LABS: Blood Urea Nitrogen 23 mg/dl (7-17); Calcium 9.8 mg/dl (8.4-10.2); Carbon Dioxide 28 mmol/L (22-30); Chloride 104 mmol/L (98-107); Estimated Creatinine Clearance 25 ml/min; Glucose 176 mg/dl (70-99); Potassium 4.7 mmol/L (3.5-5.1); Sodium 135 mmol/L (135-145); eGFR > 60.00
[2025-01-17] MEDS: TOPROL XL 25 MG PO (08:02)
--- NOTE | 2025-01-17 08:17 | W.PN.HOSP.TC ---
Today's Communication/Plan
-
Stable
Awaiting placement
Assessment / Plan
Assessment / Plan
Physical Exam
General: Well Developed, Well Nourished and No Apparent Distress
HEENT: Normocephalic, Moist mucous membranes and Atraumatic
Respiratory: Clear
Cardiac: S1/S2 and Regular Rhythm
GI: Soft, Non Tender, Non Distended and Normal Bowel Sounds
Musculoskeletal: No Cyanosis and No Edema. Pain on passive or active range of motion of the left hip and left knee. LLE neurovascularly intact.
Skin: Warm. Dry.
Neuro: Nonfocal/grossly intact
Assessment/Plan
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 She
fell on 11/13/24 and sustained a left hip fracture. She underwent ORIF of hip completed by Dr. Cason. She was then discharged to rehab for 4 weeks. Since then she has participated in home physical therapy. On 01/12/25, patient woke up with pain of
her left hip and knee, but the pain came on only with weightbearing. Pain was reported to have been worsening. Patient denied any swelling or bruising of the joints; she also denied any falls. She had been taking extra strength Tylenol without
relief. She has prescription for oxycodone but refused to take opioid medications.
# Worsening left hip/knee pain
# Left hip fracture status post ORIF for intertrochanteric hip fracture on 11/13
- Per orthopedics, x-ray and CT imaging revealed previously placed cephalomedullary nail with x-ray findings suspicious for cutout/failure. CT scan correlates these findings.
- Discussed with Dr. Larson that patient's left hip hardware has failed, and that she will be in need of a conversion surgery in the form of arthroplasty, but given her pituitary dwarfism (and the fact that her [place] anatomy is too small to be
accommodated in a community hospital like [facility] -- replacement hardware would be that of a child's, for instance, for a tumor surgery), orthopedics recommended patient be transferred to Dr. Rankin's service at [facility].
-Dr. Rankin at 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
Dr. Larson contacted the transfer center and they will work on the transfer but said it could take a few days because of high census.
-Low concern for infection being afebrile, WBC 11.7, ESR 33, and CRP of 8.8. The patient has a documented history at [place], with her only surgery outside of [facility] being here at .
-Patient's grandson is also an Marine Steam Fitter Helper at [employer] and is very comfortable with the transfer.
-Activity: Remain bedrest for now, but may transfer to chair.
-Orthopedics spoke on 01/15/25 to the patient's daughter, Julianne, via phone, at the patient's request
-PT/OT
#Leukocytosis
-No signs or symptoms of infection; also unlikely to have infection of the left hip, as per ortho
#Normocytic Anemia
-Stable
-Continue to monitor CBC
Hypothyroidism
- Continue levothyroxine
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
Type 2 diabetes
- Continue metformin
Pituitary dwarfism
Essential hypertension
- Continue metoprolol
Hyponatremia
Chronic anemia
- Hemoglobin stable
Full code
DVT prophylaxis�heparin
Regular diet
Anticipated Discharge: > 48 hours
Subjective/Interval History
-
Date of Service: January 17, 2025
Patient was seen and examined. She denied any fever, chest pain, SOB, abdominal pain or any new symptoms related to her left lower extremity.
Objective Data
-
Labs:
Laboratory Results
01/17/25
07:04
WBC 11.6 H
Hgb 11.6 L
Hct 36.1 L
Plt Count 475 H
Sodium 135
Potassium 4.7
Chloride 104
Carbon Dioxide 28
BUN 23 H
Creatinine 0.7
Glucose 176 H
Calcium 9.8
Vital Signs:
Vital Signs
Temp Pulse Resp BP Pulse Ox
97.5 F 62 16 151/75 96
01/17/25 07:36 01/17/25 08:02 01/17/25 07:36 01/17/25 08:02 01/17/25 07:36
I&O
01/16/25 01/17/25 01/18/25
06:59 06:59 06:59
Intake Total 480 / 480 510 / 510
Balance 480 / 480 510 / 510
[2025-01-17] MEDS: GLUCOPHAGE 1000 MG PO ×2 (08:49→18:18)
[2025-01-17 11:16] VITALS: BP 124/56
--- NOTE | 2025-01-17 13:34 | CM ---
Pt still waiting for transfer to [facility] for hip surgery
[2025-01-17 15:38] VITALS: BP 115/64
[2025-01-17] MEDS: LIPITOR 40 MG PO (18:18)
[2025-01-17 23:03] VITALS: BP 146/68
[2025-01-18] MEDS: HEPARIN 5000 UNITS SC ×2 (06:18→18:16)
[2025-01-18] MEDS: SYNTHROID 50 MCG PO (06:19)
[2025-01-18 07:52] VITALS: BP 158/72
[2025-01-18 08:01] LABS: Hematocrit 34.5 % (37.0-47.0); Hemoglobin 11.4 g/dL (12.0-16.0); Mean Corp Hgb Conc. 33.0 g/dL (33.0-37.0); Mean Corpuscular Volume 92.7 fL (81.0-99.0); Platelet Count 331 10^3/uL (130-400); Red Cell Dist. Width 16.4 % (11.5-14.5)
[2025-01-18 08:41] LABS: Blood Urea Nitrogen 16 mg/dl (7-17); Calcium 9.7 mg/dl (8.4-10.2); Carbon Dioxide 26 mmol/L (22-30); Chloride 105 mmol/L (98-107); Estimated Creatinine Clearance 29 ml/min; Glucose 174 mg/dl (70-99); Potassium 4.3 mmol/L (3.5-5.1); Sodium 138 mmol/L (135-145); eGFR > 60.00
[2025-01-18] MEDS: GLUCOPHAGE 1000 MG PO ×2 (09:21→18:15)
[2025-01-18] MEDS: TOPROL XL 25 MG PO (09:21)
--- NOTE | 2025-01-18 11:21 | PN.CDI ---
CDI
- -
CDI:
Physician Documentation Request
Admit Date: 01/17/25 08:13
Dear Doctor Freedom,
Please review the following and provide your response in the progress notes.
Clinical Indicators:
- RN skin assessments indicate:
- Stage 1 coccyx pressure injury, POA
- Stage 2 right buttock pressure injury, POA
Physician documentation of the type and location of wounds is required for compliant documentation. Based on the above clinical findings and your assessment, please provide the following in your progress note:
1. Location of the ulcer/wound, including laterality.
2. Type (etiology) of ulcer/wound:
- Diabetic ulcer
- Arterial (ischemic) ulcer
- Traumatic wound
- Venous stasis ulcer
- Pressure (decubitus) ulcer
- Other
Use of terms such as suspected, likely, concern for, or probable (associated with a specific diagnosis that is being evaluated, monitored, or treated as if it exists) are acceptable and can be coded in the inpatient setting, when documented at the
time of discharge.
Thank you,
Hasmukh Daugherty RN
CDI Specialist
Please use your independent medical judgment in providing your response.
*Source: National Pressure Ulcer Advisory Panel (NPUAP)
--- NOTE | 2025-01-18 15:24 | CM ---
Call placed to bed management at [facility] re status of available beds. They stated they did not have her on their transfer list. Call to [facility]'s Transfer Center at [phone], spoke to Maira, she stated she is on their transfer list however
they do not have an available bed yet. Unable to provide when they may have a bed. Update to Physician , anesthesia tech and CM.
[2025-01-18 15:36] VITALS: BP 124/66
--- NOTE | 2025-01-18 16:12 | W.PN.HOSP.TC ---
Today's Communication/Plan
-
Disposition: On 01/18/25, Manager Telemarketing Wendy Tanner called [facility] and also called [facility] transfer center and she was told plan is now for patient to go to [facility]; [facility] has patient on their list but there are no beds yet.
Assessment / Plan
Assessment / Plan
Physical Exam
General: Well Developed, Well Nourished and No Apparent Distress
HEENT: Normocephalic, Moist mucous membranes and Atraumatic
Respiratory: Clear
Cardiac: S1/S2 and Regular Rhythm
GI: Soft, Non Tender, Non Distended and Normal Bowel Sounds
Musculoskeletal: No Cyanosis and No Edema. Pain on passive or active range of motion of the left hip and left knee. LLE neurovascularly intact.
Skin: Warm. Dry.
Neuro: Nonfocal/grossly intact
Assessment/Plan
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 She
fell on 11/13/24 and sustained a left hip fracture. She underwent ORIF of hip completed by Dr. Cason. She was then discharged to rehab for 4 weeks. Since then she has participated in home physical therapy. On 01/12/25, patient woke up with pain of
her left hip and knee, but the pain came on only with weightbearing. Pain was reported to have been worsening. Patient denied any swelling or bruising of the joints; she also denied any falls. She had been taking extra strength Tylenol without
relief. She has prescription for oxycodone but refused to take opioid medications.
# Worsening left hip/knee pain
# Left hip fracture status post ORIF for intertrochanteric hip fracture on 11/13
- Per orthopedics, x-ray and CT imaging revealed previously placed cephalomedullary nail with x-ray findings suspicious for cutout/failure. CT scan correlates these findings.
- Discussed with Dr. Larson that patient's left hip hardware has failed, and that she will be in need of a conversion surgery in the form of arthroplasty, but given her pituitary dwarfism (and the fact that her [place] anatomy is too small to be
accommodated in a community hospital like [facility] -- replacement hardware would be that of a child's, for instance, for a tumor surgery), orthopedics recommended patient be transferred to Dr. Rankin's service at [facility].
-Dr. Rankin at [facility] has experience doing hip replacements, child patients with sarcoma and she has the ability to repair someone with bone anatomy this small and she has accepted patient for transfer.
Dr. Larson contacted the transfer center and they will work on the transfer but said it could take a few days because of high census.
-Low concern for infection being afebrile, WBC 11.7, ESR 33, and CRP of 8.8. The patient has a documented history at [place], with her only surgery outside of [facility]' being here at .
-Patient's grandson is also an Customer Leader at [facility] and is very comfortable with the transfer.
-Activity: Remain bedrest for now, but may transfer to chair.
-Orthopedics spoke on 01/15/25 to the patient's daughter, Julianne, via phone, at the patient's request
-PT/OT
#Leukocytosis
-No signs or symptoms of infection; also unlikely to have infection of the left hip, as per ortho
#Normocytic Anemia
-Stable
-Continue to monitor CBC
Hypothyroidism
- Continue levothyroxine
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
Type 2 diabetes
- Continue metformin
Pituitary dwarfism
Essential hypertension
- Continue metoprolol
Hyponatremia
Chronic anemia
- Hemoglobin stable
Code Status: Full code
DVT Prophylaxis: Heparin subq
Regular diet
Disposition: On 01/18/25, Manager Telemarketing Wendy Tanner called [facility] and also called [facility] transfer center and she was told plan is now for patient to go to [facility]; [facility] has patient on their list but there are no beds yet.
Anticipated Discharge: > 48 hours
Subjective/Interval History
-
Date of Service: January 18, 2025
Patient was seen and examined. She denied any new symptoms or complaints.
Objective Data
-
Labs:
Laboratory Results
01/18/25
07:37
WBC 11.9 H
Hgb 11.4 L
Hct 34.5 L
Plt Count 331 D
Sodium 138
Potassium 4.3
Chloride 105
Carbon Dioxide 26
BUN 16
Creatinine 0.5 L
Glucose 174 H
Calcium 9.7
Vital Signs:
Vital Signs
Temp Pulse Resp BP Pulse Ox
97.5 F 59 18 124/66 97
01/18/25 15:36 01/18/25 15:36 01/18/25 15:36 01/18/25 15:36 01/18/25 15:36
I&O
01/17/25 01/18/25 01/19/25
06:59 06:59 06:59
Intake Total 510 / 510 840 / 840
Balance 510 / 510 840 / 840
--- NOTE | 2025-01-18 16:30 | CM ---
Await transfer to [facility].
[2025-01-18] MEDS: LIPITOR 40 MG PO (18:15)
[2025-01-18 23:23] VITALS: BP 126/53
[2025-01-19] MEDS: HEPARIN 5000 UNITS SC ×2 (06:26→17:10)
[2025-01-19] MEDS: SYNTHROID 50 MCG PO (06:27)
[2025-01-19 07:00] VITALS: BP 163/71
[2025-01-19] MEDS: GLUCOPHAGE 1000 MG PO ×2 (08:41→17:10)
[2025-01-19] MEDS: TOPROL XL 25 MG PO (08:41)
--- NOTE | 2025-01-19 09:40 | CM ---
Patient seen at bedside
she reports await transfer to [facility]
PLAN: Transfer to [facility]
--- NOTE | 2025-01-19 10:32 | W.PN.HOSP.TC ---
Today's Communication/Plan
-
Discharge to [facility] today
Assessment / Plan
Assessment / Plan
Physical Exam
General: Well Developed, Well Nourished and No Apparent Distress
HEENT: Normocephalic, Moist mucous membranes and Atraumatic
Respiratory: Clear
Cardiac: S1/S2 and Regular Rhythm
GI: Soft, Non Tender, Non Distended and Normal Bowel Sounds
Musculoskeletal: No Cyanosis and No Edema. Pain with passive or active range of motion of the left hip and left knee. Trace edema around the left knee on 01/19/25. LLE neurovascularly intact.
Skin: Warm. Dry.
Neuro: Nonfocal/grossly intact
Assessment/Plan
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 She
fell on 11/13/24 and sustained a left hip fracture. She underwent ORIF of hip completed by Dr. Cason. She was then discharged to rehab for 4 weeks. Since then she has participated in home physical therapy. On 01/12/25, patient woke up with pain of
her left hip and knee, but the pain came on only with weightbearing. Pain was reported to have been worsening. Patient denied any swelling or bruising of the joints; she also denied any falls. She had been taking extra strength Tylenol without
relief. She has prescription for oxycodone but refused to take opioid medications.
# Worsening left hip/knee pain
# Left hip fracture status post ORIF for intertrochanteric hip fracture on 11/13
# History of left distal femur fracture which was treated with allograft bone grafting (and iliac crest bone grafting) and fixation which went on to fail status post infection a number of years ago and had all of her hardware removed
- Per orthopedics, x-ray and CT imaging revealed previously placed cephalomedullary nail with x-ray findings suspicious for cutout/failure. CT scan correlates these findings.
- Discussed with Dr. Larson that patient's left hip hardware has failed, and that she will be in need of a conversion surgery in the form of arthroplasty, but given her pituitary dwarfism (and the fact that her [place] anatomy is too small to be
accommodated in a [facility] like [facility] -- replacement hardware would be that of a child's, for instance, for a tumor surgery), orthopedics recommended patient be transferred to Dr. Rankin's service at [facility].
-Dr. Rankin at [facility] has experience doing hip replacements, child patients with sarcoma and she has the ability to repair someone with bone anatomy this small and she has accepted patient for transfer.
Dr. Larson contacted the transfer center and patient will be transferred to [facility] today
-Low concern for infection
-Activity: Remain bedrest for now, but may transfer to chair.
-Orthopedics spoke on 01/15/25 to the patient's daughter, Julianne, via phone, at the patient's request
-Requested ortho to see patient again on 01/19/25, no concerns from their standpoint, left knee very mild swelling and pain could be from hip issue, appears chronic changes, no concern for infection
#Leukocytosis
-Remains with no signs or symptoms of infection; also unlikely to have infection of the left hip, as per ortho
#Normocytic Anemia
-Stable
-Continue to monitor CBC
Hypothyroidism
- Continue levothyroxine
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
Type 2 diabetes
- Continue metformin
Pituitary dwarfism
Essential hypertension
- Continue metoprolol
History of Hyponatremia
-No hyponatremia this hospitalization
Stage 1 coccyx pressure injury, POA
Stage 2 right buttock pressure injury, POA
Code Status: Full code
DVT Prophylaxis: Heparin subq
Regular diet
Disposition: On 01/18/25, Waste Water Or Water Plant Operator Wendy Tanner called [facility] and also called [facility] transfer center and she was told plan is now for patient to go to [facility]; patient is going to [facility] today.
More than 30 minutes spent in discharge including
Final examination of the patient
Summarizing hospital stay
Instructions for continuing care to all relevant caregivers
Preparation of discharge records, prescriptions, and referral forms
Total time spent (in minutes): 36
Anticipated Discharge: Today
Subjective/Interval History
-
Date of Service: January 19, 2025
Patient was seen and examined. She was doing okay, except some very mild left knee swelling and pain today, no redness.
Objective Data
-
Vital Signs:
Vital Signs
Temp Pulse Resp BP Pulse Ox
97.9 F 60 12 163/71 96
01/19/25 07:00 01/19/25 07:00 01/19/25 07:00 01/19/25 07:00 01/19/25 07:00
I&O
01/18/25 01/19/25 01/20/25
06:59 06:59 06:59
Intake Total 840 / 840 480 / 480
Balance 840 / 840 480 / 480
[2025-01-19 11:03] VITALS: BP 142/73
--- NOTE | 2025-01-19 12:56 | W.PN.UPDATE ---
Update Note
Progress Note Update
I was asked to see and examine this patient at [facility]. She is awaiting transfer for [facility] for treatment of her proximal femur fracture. Due to her small size she was not felt to be a candidate for hip replacement surgery after failing
operative fixation 2 months ago. She had complaints of left knee pain and radiographs were ordered by the medical team. I was asked to come and see the patient. She has a history of left distal femur fracture which was treated with allograft bone
grafting and fixation which went on to fail. She apparently had iliac crest bone grafting as well. She apparently has done well overall with her distal femur and knee since that time but did have an infection a number of years ago and had all of
her hardware removed. She noted some swelling about her knee which prompted the new radiographs and evaluation. Examination of her left knee reveals a healed surgical incision. No erythema no increased warmth. Range of motion limited because of
hip pain secondary to her current hip issues. Trace effusion. Plan: As discussed with the patient, I do not find anything acute with her left knee currently. She notes that she has some swelling. She may have some swelling secondary to her hip
issue as we sometimes do get some swelling about the knee. I see no evidence of fracture. I see no evidence of infection about her knee joint today. Her radiographs show chronic changes which were present 2 months ago and also a few days ago.
She is awaiting transfer to [facility] for more definitive treatment for her hip but I do not believe there is anything else to manage from her knee at this point in time.
[2025-01-19 14:56] VITALS: BP 109/56
--- NOTE | 2025-01-19 16:20 | W.DCSUMMARY ---
Discharge Summary
Discharge Data
Date of Admission: 01/17/25
Date of Discharge: 01/19/25
Total time spent discharging patient (in min): 36
-
Pending Results: No
Hospital Course
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
pain. She fell in mid October 2024, and sustained a left hip fracture. She underwent ORIF of the left hip by Dr. Cason. She was discharged to rehab for 4 weeks. Since then she had been participating in home physical therapy. Two days prior to
presentation, patient woke up with pain of her left hip and knee only with weightbearing, and the pain had been getting progressively worse. She denied any swelling or bruising of the joints. Orthopedics was consulted, and according to orthopedics,
x-ray and CT imaging revealed previously placed cephalomedullary nail with x-ray findings suspicious for cutout/failure, and CT imaging correlated these findings. Dr. Larson mentioned that patient's left hip hardware has failed, and that she will
be in need of a conversion surgery in the form of arthroplasty, but given her pituitary dwarfism (and the fact that her [place] anatomy is too small to be accommodated at [facility] -- replacement hardware would be that of a child's, for instance, for a
tumor surgery), orthopedics recommended patient be transferred to Dr. Rankin's service at [facility]. There was low concern for infection. Patient was placed on bedrest except for getting up to sit in chair. She was placed on
pharmacologic DVT prophylaxis. On 01/19/25, patient was transferred to [facility].
Discharge Plan
-
Patient Disposition: Acute Care Hospital
Condition: Fair
Discharge Orders:
Discharge Patient (As Directed); Ordered 01/19/25
Ordered By: James Loja
Discharge Date and Time
Discharge Date/Time: 01/19/25 18:18
Print Language: [id number]
[2025-01-19] MEDS: LIPITOR 40 MG PO (17:10)
== END 2025-01-19 18:18 | disposition short-term general hospital (02) | DRG 560 ==
LOC: 4 EAST ACU 08:13
PROVIDERS: ADMITTING PHYSICIAN Hospitalist; ATTENDING PHYSICIAN Hospitalist; CONSULT PHYSICIAN Orthopaedic Surgery; EMERGENCY PHYSICIAN Emergency Medicine; FAMILY PHYSICIAN Family Medicine
DX: T84.398A Other mechanical complication of other bone devices, implants and grafts, initial encounter (principal); E23.0 Hypopituitarism; E87.1 Hypo-osmolality and hyponatremia; T84.84XA Pain due to internal orthopedic prosthetic devices, implants and grafts, initial encounter; M25.562 Pain in left knee; E03.9 Hypothyroidism, unspecified; E11.9 Type 2 diabetes mellitus without complications; E78.00 Pure hypercholesterolemia, unspecified; I10 Essential (primary) hypertension; R26.2 Difficulty in walking, not elsewhere classified; L89.151 Pressure ulcer of sacral region, stage 1; L89.312 Pressure ulcer of right buttock, stage 2; D64.9 Anemia, unspecified; D72.829 Elevated white blood cell count, unspecified; Y83.1 Surgical operation with implant of artificial internal device as the cause of abnormal reaction of the patient, or of later complication, without mention of misadventure at the time of the procedure; Y92.9 Unspecified place or not applicable; Z96.7 Presence of other bone and tendon implants; Z90.411 Acquired partial absence of pancreas; Z90.81 Acquired absence of spleen; Z88.1 Allergy status to other antibiotic agents; Z88.0 Allergy status to penicillin; Z79.890 Hormone replacement therapy; Z79.84 Long term (current) use of oral hypoglycemic drugs; Z79.82 Long term (current) use of aspirin
CPT/HCPCS: 73502; 73564; 73700; 80048; 85025; 85027; 85652; 86140; 86850; 86900; 86901; 99285